=== PATIENT | female | born 1945 | race Hispanic/Latino ===

== ENCOUNTER → 2017-12-24 | Outpatient (CLI) | payer OTHER, MEDICARE ==
[~2017-12-24] MED LIST: AMLO5TAB2 PO; CALC-1009 PO; CARB-38 PO; LISI10TA7 PO; ROSU10TA27 PO; [UNRECOGNIZED DRUG - OTHER] PO
== END | disposition home or self-care (01) ==
LOC: SHCH 09:40
PROVIDERS: ATTEND Internal Medicine Cardiovascular Disease
DX: I10 Essential (primary) hypertension (principal)
CPT/HCPCS: 93306

== ENCOUNTER → 2018-01-05 | Outpatient (CLI) | payer OTHER, MEDICARE | END | disposition home or self-care (01) | LOC: SHCH 08:13 | PROVIDERS: ATTEND Internal Medicine Cardiovascular Disease | DX: I70.1 Atherosclerosis of renal artery (principal); N28.1 Cyst of kidney, acquired | CPT/HCPCS: 93975 ==

== ENCOUNTER 2018-05-19 09:50 | Observation (INO) | payer OTHER, MEDICARE ==
[~2018-05-19] VITALS: Ht 154.9 cm; Wt 45.6 kg
[~2018-05-19 09:50] MED LIST changes: -AMLO5TAB2 PO; +AMLO5TAB7 PO
[2018-05-19 10:12] LABS: EOSINOPHILS % (AUTO) 2.3 % (0.0-8.0); HEMATOCRIT 33.6 % (36-48); LYMPHOCYTES % (AUTO) 24.5 % (21.0-51.0); MEAN CORPUSCULAR HEMOGLOBIN 30.7 pg (27.0-33.0); MEAN CORPUSCULAR HGB CONC 34.7 g/dL (32.0-36.0); MEAN CORPUSCULAR VOLUME 88.4 fL (79-99); MONOCYTES % (AUTO) 8.4 % (3.0-13.0); NEUTROPHILS % (AUTO) 63.8 % (40.0-77.0); NUCLEATED RED BLOOD CELLS 0.1 % (0.0-0.19); PLATELET COUNT (AUTO) 237 K/uL (130-400); RED CELL DISTRIBUTION WIDTH 13.5 % (11.0-15.5); WHITE BLOOD COUNT (AUTO) 7.3 K/uL (4.8-10.8)
[2018-05-19 10:20] LABS: CREATININE 1.7 mg/dL (0.5-1.5); POTASSIUM 4.2 mmol/L (3.5-5.1)
[2018-05-19 10:25] LABS: INR 0.95 (0.85-1.15)
[2018-05-19 10:26] LABS: ALBUMIN 4.1 g/dL (3.5-5.0); BILIRUBIN,TOTAL 0.6 mg/dL (0.2-1.0); TOTAL PROTEIN, SERUM 7.3 g/dL (6.0-8.3)
[2018-05-19] MEDS ORDERED: ASPIRIN 325 MG TABLET ONE (13:11)
[2018-05-19] MEDS ORDERED: MORPHINE SULFATE 2 MG/ML 1ML SYG IV PRN (14:30)
[2018-05-19] MEDS: ASPIRIN 325MG EC TAB 325 MG TABLET.DR PO SCH (14:30)
[2018-05-19] MEDS ORDERED: ACETAMINOPHEN 325 MG TAB PO PRN (14:30)
[2018-05-19] MEDS ORDERED: ZOLPIDEM TARTRATE 5 MG TAB PO PRN (14:30)
[2018-05-19] MEDS ORDERED: ONDANSETRON HCL 4 MG/2 ML VIAL IV PRN (14:30)
[2018-05-19 15:51] LABS: HEMOGLOBIN A1C 5.2 % (4.0-6.0)
[2018-05-19 16:09] LABS: CREATINE KINASE, TOTAL 121 U/L (21-232); MYOGLOBIN 142 ng/mL (10-92); TROPONIN I < 0.04 ng/mL (0.00-0.06)
[2018-05-19] MEDS ORDERED: NITROGLYCERIN 1GM/1 INCH PACKET TD ONE (18:13)
[2018-05-19 20:15] VITALS: BP 135/54
[2018-05-19] MEDS: NITROGLYCERIN 1GM/1 INCH PACKET TD SCH (21:19)
[2018-05-19] MEDS: METOPROLOL TARTRATE 25 MG TAB PO SCH (21:42)
[2018-05-19] MEDS: SODIUM CHLORIDE 0.9% 1000ML 1,000 ML IV SCH (21:42)
[2018-05-19] MEDS: ENOXAPARIN SODIUM 60 MG/0.6 ML SQ SCH (21:43)
[2018-05-19 22:57] LABS: CREATINE KINASE, TOTAL 106 U/L (21-232); MYOGLOBIN 132 ng/mL (10-92); TROPONIN I < 0.04 ng/mL (0.00-0.06)
[2018-05-19 23:00] VITALS: BP 93/75
[2018-05-20] MEDS: SODIUM CHLORIDE 0.9% 1000ML 1,000 ML IV SCH ×2 (00:25→06:20)
[2018-05-20 04:00] VITALS: BP 93/57
[2018-05-20] MEDS: NITROGLYCERIN 1GM/1 INCH PACKET TD SCH (06:12)
[2018-05-20 06:51] LABS: CHOLESTEROL 163 mg/dL (<200); HDL CHOLESTEROL 35 mg/dL (35-85); LDL DIRECT 67 mg/dL (0-99); TRIGLYCERIDES 436 mg/dL (30-200)
[2018-05-20 06:56] LABS: CREATINE KINASE, TOTAL 93 U/L (21-232); MYOGLOBIN 110 ng/mL (10-92); TROPONIN I < 0.04 ng/mL (0.00-0.06)
[2018-05-20 07:32] VITALS: BP 116/60
[2018-05-20] MEDS: ASPIRIN 325MG EC TAB 325 MG TABLET.DR PO SCH (08:36)
[2018-05-20] MEDS: ENOXAPARIN SODIUM 60 MG/0.6 ML SQ SCH (08:37)
[2018-05-20] MEDS: METOPROLOL TARTRATE 25 MG TAB PO SCH (08:37)
[2018-05-20] MEDS ORDERED: PANTOPRAZOLE SODIUM 40 MG TABLET.DR PO SCH (09:00)
[2018-05-20] MEDS ORDERED: CALCIUM 600 + VITAMIN D 400 TABLET PO SCH (09:00)
[2018-05-20] MEDS ORDERED: CYANOCOBALAMIN (VITAMIN B-12) 1,000 MCG TABLET PO SCH (09:00)
[2018-05-20] MEDS ORDERED: CARBIDOPA-LEVODOPA 25-100 TAB PO SCH (09:00)
[2018-05-20] MEDS ORDERED: CLOPIDOGREL BISULFATE 75 MG TAB PO SCH (09:00)
[2018-05-20] MEDS ORDERED: LISINOPRIL 10 MG TABLET PO SCH (12:00)
[2018-05-20] MEDS ORDERED: AMLODIPINE BESYLATE 5 MG TAB PO SCH (21:00)
[2018-05-20] MEDS ORDERED: ATORVASTATIN CALCIUM 20 MG TABLET PO SCH (21:00)
== END 2018-05-20 10:00 | disposition home or self-care (01) ==
LOC: EDH 09:50 → EDHIP 14:24 → 2AH 18:55
PROVIDERS: ADMIT Internal Medicine; ATTEND Internal Medicine
DX: R07.89 Other chest pain (principal); E78.5 Hyperlipidemia, unspecified; G20 Parkinson's disease; I10 Essential (primary) hypertension; Z82.0 Family history of epilepsy and other diseases of the nervous system; Z82.3 Family history of stroke; Z82.49 Family history of ischemic heart disease and other diseases of the circulatory system; Z83.3 Family history of diabetes mellitus; Z82.5 Family history of asthma and other chronic lower respiratory diseases
CPT/HCPCS: 36415 ×2; 70450; 71045; 80053; 80061; 82550 ×4; 83036; 83874 ×3; 84484 ×4; 85025; 85610; 85730; 93005; 96372; 99285; G0378 ×20; J1650 ×2; J7030 ×2

== ENCOUNTER → 2018-06-17 | Outpatient (CLI) | payer OTHER, MEDICARE | END | disposition home or self-care (01) | LOC: SHCH 07:40 | PROVIDERS: ATTEND Internal Medicine Cardiovascular Disease | DX: I20.9 Angina pectoris, unspecified (principal) | CPT/HCPCS: 93306 ==

== ENCOUNTER → 2019-09-30 | Outpatient (CLI) | payer OTHER, MEDICARE ==
[~2019-09-30] MED LIST changes: -AMLO5TAB7 PO; +AMLO5TAB9 PO; -ROSU10TA27 PO; +ROSU10TA28 PO
== END | disposition home or self-care (01) ==
LOC: SHCH 08:54
PROVIDERS: ATTEND Internal Medicine Cardiovascular Disease
DX: I65.23 Occlusion and stenosis of bilateral carotid arteries (principal); I70.8 Atherosclerosis of other arteries
CPT/HCPCS: 93880

== ENCOUNTER → 2019-10-08 | Outpatient (CLI) | payer OTHER, MEDICARE ==
[~2019-10-08] MED LIST changes: +REGADENOSON 0.4 MG/5 ML PF SYG IVP SCH
== END | disposition home or self-care (01) ==
LOC: SHCH 08:50
PROVIDERS: ATTEND Internal Medicine Cardiovascular Disease
DX: I20.9 Angina pectoris, unspecified (principal); R06.09 Other forms of dyspnea; R07.9 Chest pain, unspecified
CPT/HCPCS: 78452; 93017; 96374; A9500 ×2; J2785

== ENCOUNTER → 2020-11-09 | Outpatient (CLI) | payer OTHER, MEDICARE ==
[~2020-11-09] MED LIST changes: +AMLO-257 PO; -AMLO5TAB9 PO; +LISI10TA24 PO; -LISI10TA7 PO; -REGADENOSON 0.4 MG/5 ML PF SYG IVP SCH
== END | disposition home or self-care (01) ==
LOC: SHCH 10:00
PROVIDERS: ATTEND Internal Medicine Cardiovascular Disease
DX: R09.89 Other specified symptoms and signs involving the circulatory and respiratory systems (principal)
CPT/HCPCS: 93880

== ENCOUNTER 2021-05-08 16:29 | Inpatient (IN) | payer MEDICARE ==
[~2021-05-08] VITALS: Ht 147.3 cm; Wt 45.3 kg
[~2021-05-08 16:29] MED LIST changes: -CALC-1009 PO; -LISI10TA24 PO; +LOSA50TA64 PO; +VITAMIN D2 PO; -[UNRECOGNIZED DRUG - OTHER] PO
[2021-05-08 16:39] VITALS: BP 139/55
[2021-05-08 17:34] LABS: BASOPHILS % (AUTO) 0.4 % (0.0-5.0); EOSINOPHILS % (AUTO) 2.6 % (0.0-8.0); HEMATOCRIT 33.4 % (36-48); LYMPHOCYTES % (AUTO) 21.5 % (21.0-51.0); MEAN CORPUSCULAR HEMOGLOBIN 30.1 pg (27.0-33.0); MEAN CORPUSCULAR HGB CONC 34.7 g/dL (32.0-36.0); MEAN CORPUSCULAR VOLUME 86.8 fL (79-99); MONOCYTES % (AUTO) 8.7 % (3.0-13.0); NEUTROPHILS % (AUTO) 66.4 % (40.0-77.0); PLATELET COUNT (AUTO) 297 K/uL (130-400); RED BLOOD CELL COUNT(AUTO) 3.85 MIL/uL (4.00-5.50); RED CELL DISTRIBUTION WIDTH 12.3 % (11.0-15.5); WHITE BLOOD COUNT (AUTO) 11.3 K/uL (4.8-10.8)
[2021-05-08 17:47] LABS: INR 0.98 (0.85-1.15); PROTHROMBIN TIME 10.7 SEC (9.6-11.6)
[2021-05-08 18:06] LABS: ALBUMIN 4.2 g/dL (3.5-5.0); BILIRUBIN,TOTAL 0.8 mg/dL (0.2-1.0); CREATININE 2.1 mg/dL (0.5-1.5); POTASSIUM 4.4 mmol/L (3.5-5.1); TOTAL PROTEIN, SERUM 7.9 g/dL (6.0-8.3)
[2021-05-08 18:30] VITALS: BP 136/58
[2021-05-08] MEDS ORDERED: MORPHINE 4 MG SYG IM ONE (18:30)
[2021-05-08] MEDS ORDERED: ONDANSETRON 4MG INJ IVP ONE (18:30)
[2021-05-08] MEDS ORDERED: ONDANSETRON 4MG INJ IV PRN (20:30)
[2021-05-08] MEDS ORDERED: ACETAMINOPHEN 325 MG TAB PO PRN (20:30)
[2021-05-08] MEDS ORDERED: MORPHINE 2 MG SYG IVP PRN (20:30)
[2021-05-08 21:00] VITALS: BP 144/65
[2021-05-08] MEDS: INSULIN HUMULIN R 100 UNIT/ML 3ML SQ SCH (21:00)
[2021-05-08] MEDS: 0.9%NACL 1000ML 1,000 ML IV SCH (22:15)
[2021-05-08] MEDS: FAMOTIDINE 20MG TAB PO SCH (22:15)
[2021-05-08 22:55] LABS: APPEARANCE,URINE Clear (CLEAR); BILIRUBIN,URINE Negative (NEGATIVE); COLOR,URINE Yellow (YELLOW); GLUCOSE, URINE (UA) Negative (NEGATIVE); KETONES,URINE Trace mg/dL (NEGATIVE); LEUKOCYTE ESTERASE ,URINE Negative (NEGATIVE); NITRATE,URINE Negative (NEGATIVE); OCCULT BLOOD,URINE Negative (NEGATIVE); PROTEIN,URINE POS 1+ mg/dL (NEGATIVE)
[2021-05-08 23:03] LABS: BACTERIA,URINE None Seen /HPF (None Seen); RBC,URINE 0-1 /HPF (0-1); SQUAMOUS EPITHELIAL CELL,UR Few /HPF (0-2); WBC,URINE 0-1 /HPF (0-1)
[2021-05-08 23:30] VITALS: BP 130/52
[2021-05-08 23:55] VITALS: BP 134/49
[2021-05-09 03:32] VITALS: BP 137/64
[2021-05-09 05:11] LABS: BASOPHILS % (AUTO) 0.5 % (0.0-5.0); EOSINOPHILS % (AUTO) 0.5 % (0.0-8.0); HEMATOCRIT 32.3 % (36-48); LYMPHOCYTES % (AUTO) 14.2 % (21.0-51.0); MEAN CORPUSCULAR HEMOGLOBIN 29.7 pg (27.0-33.0); MEAN CORPUSCULAR HGB CONC 34.4 g/dL (32.0-36.0); MEAN CORPUSCULAR VOLUME 86.4 fL (79-99); MONOCYTES % (AUTO) 7.3 % (3.0-13.0); PLATELET COUNT (AUTO) 277 K/uL (130-400); RED BLOOD CELL COUNT(AUTO) 3.74 MIL/uL (4.00-5.50); RED CELL DISTRIBUTION WIDTH 12.3 % (11.0-15.5); WHITE BLOOD COUNT (AUTO) 11.4 K/uL (4.8-10.8)
[2021-05-09 05:30] LABS: HEMOGLOBIN A1C 5.1 % (4.0-6.0)
[2021-05-09 05:32] LABS: ALBUMIN 3.8 g/dL (3.5-5.0); BILIRUBIN,TOTAL 0.6 mg/dL (0.2-1.0); MAGNESIUM 2.8 mg/dL (1.80-2.40); POTASSIUM 4.9 mmol/L (3.5-5.1); TOTAL PROTEIN, SERUM 7.5 g/dL (6.0-8.3)
[2021-05-09] MEDS: 0.9%NACL 1000ML 1,000 ML IV SCH ×2 (05:49→16:56)
[2021-05-09] MEDS: INSULIN HUMULIN R 100 UNIT/ML 3ML SQ SCH ×4 (05:50→21:00)
[2021-05-09 07:46] VITALS: BP 132/57
[2021-05-09] MEDS: FAMOTIDINE 20MG TAB PO SCH (10:08)
[2021-05-09] MEDS: ACETAMINOPHEN 325 MG TAB PO PRN ×3 (10:14→13:25)
[2021-05-09 10:58] VITALS: BP 127/59
[2021-05-09 16:13] VITALS: BP 133/60
[2021-05-09] MEDS ORDERED: HYDRALAZINE 20MG/ML VIAL IM PRN (16:30)
[2021-05-09 19:28] VITALS: BP 132/64
[2021-05-10] VITALS (27 sets, daily range): BP systolic 105–159; BP diastolic 49–85
[2021-05-10] MEDS: 0.9%NACL 1000ML 1,000 ML IV SCH ×3 (03:08→22:30)
[2021-05-10] MEDS: INSULIN HUMULIN R 100 UNIT/ML 3ML SQ SCH ×4 (06:39→21:00)
[2021-05-10] MEDS: FAMOTIDINE 20MG TAB PO SCH (09:18)
[2021-05-10] MEDS: LOSARTAN 50 MG TABLET PO SCH (09:18)
[2021-05-10] MEDS: CARBIDOPA-LEVODOPA 25-100 TAB PO SCH (09:18)
[2021-05-10] MEDS ORDERED: DEXAMETHASONE SOD PHOSPHATE 4 MG/ML 1ML VIAL ONE (15:17)
[2021-05-10] MEDS ORDERED: ROPIVACAINE 0.5% 5MG/ML 30ML IJ ONE (15:18)
[2021-05-10] MEDS ORDERED: LIDOCAINE PF 100MG/5ML (2%) SYRINGE 5ML ONE (16:27)
[2021-05-10] MEDS ORDERED: SUCCINYLCHOLINE CHLORIDE 20 MG/ML 10 ML VIAL ONE (16:27)
[2021-05-10] MEDS ORDERED: GLYCOPYRROLATE 1 MG/5 ML SYRINGE ONE (16:28)
[2021-05-10] MEDS ORDERED: PROPOFOL 10 MG/ML 20ML VIAL IV ONE (16:28)
[2021-05-10] MEDS ORDERED: NEOSTIGMINE 5MG/5ML SYR IV ONE (16:28)
[2021-05-10] MEDS ORDERED: DEXAMETHASONE SOD PHOSPHATE 10MG/ML 1ML VIAL ONE (16:28)
[2021-05-10] MEDS ORDERED: FENTANYL CITRATE PF 50 MCG/1 ML 2ML VIAL ONE (16:29)
[2021-05-10] MEDS ORDERED: ROCURONIUM 10MG/1ML SYR 10 MG/ML ML ONE (16:29)
[2021-05-10] MEDS ORDERED: ONDANSETRON 4MG INJ ONE (16:29)
[2021-05-10] MEDS: CEFAZOLIN SODIUM 1 GM VIAL ONE ×2 (16:40→17:21)
[2021-05-10] MEDS ORDERED: MEPERIDINE-PF 25 MG/ML SYG ONE (18:03)
[2021-05-10] MEDS ORDERED: MORPHINE 2 MG SYG IVP PRN (19:30)
[2021-05-10] MEDS ORDERED: HYDROCODONE/ACETAMINOPHEN 5/325 MG TAB PO PRN (19:30)
[2021-05-10] MEDS ORDERED: ATORVASTATIN 20 MG TABLET PO SCH (21:00)
[2021-05-10] MEDS ORDERED: AMLODIPINE 5 MG TAB PO SCH (21:00)
[2021-05-10] MEDS: CEFAZOLIN SODIUM 1 GM VIAL IVP SCH (22:02)
[2021-05-11 04:02] VITALS: BP 144/53
[2021-05-11 05:04] LABS: HEMATOCRIT 28.4 % (36-48); MEAN CORPUSCULAR HEMOGLOBIN 29.8 pg (27.0-33.0); MEAN CORPUSCULAR HGB CONC 34.2 g/dL (32.0-36.0); MEAN CORPUSCULAR VOLUME 87.4 fL (79-99); RED BLOOD CELL COUNT(AUTO) 3.25 MIL/uL (4.00-5.50); RED CELL DISTRIBUTION WIDTH 12.4 % (11.0-15.5); WHITE BLOOD COUNT (AUTO) 10.5 K/uL (4.8-10.8)
[2021-05-11 05:09] LABS: CREATININE 1.6 mg/dL (0.5-1.5); MAGNESIUM 2.4 mg/dL (1.80-2.40); POTASSIUM 4.6 mmol/L (3.5-5.1)
[2021-05-11] MEDS: CEFAZOLIN SODIUM 1 GM VIAL IVP SCH (05:14)
[2021-05-11] MEDS: INSULIN HUMULIN R 100 UNIT/ML 3ML SQ SCH ×3 (07:29→16:24)
[2021-05-11 08:00] VITALS: BP 153/62
[2021-05-11] MEDS: 0.9%NACL 1000ML 1,000 ML IV SCH ×2 (08:30→18:30)
[2021-05-11] MEDS: LOSARTAN 50 MG TABLET PO SCH (08:56)
[2021-05-11] MEDS: CARBIDOPA-LEVODOPA 25-100 TAB PO SCH (08:56)
[2021-05-11] MEDS: FAMOTIDINE 20MG TAB PO SCH (08:56)
[2021-05-11 12:00] VITALS: BP 145/69
[2021-05-11 16:00] VITALS: BP 149/74
[2021-05-11 20:15] VITALS: BP 137/60
== END 2021-05-11 20:25 | DRG 522 ==
LOC: EDH 16:29 → EDHIP 20:10 → 3AH 23:28
PROVIDERS: ADMIT Internal Medicine; ATTEND Internal Medicine
PROC: 0SRS01A Replacement of Left Hip Joint, Femoral Surface with Metal Synthetic Substitute, Uncemented, Open Approach (ICD-10-PCS; principal; 2021-05-10 16:55)
DX: S72.002A Fracture of unspecified part of neck of left femur, initial encounter for closed fracture (principal); E78.5 Hyperlipidemia, unspecified; G20 Parkinson's disease; F02.80 Dementia in other diseases classified elsewhere, unspecified severity, without behavioral disturbance, psychotic disturbance, mood disturbance, and anxiety; I12.9 Hypertensive chronic kidney disease with stage 1 through stage 4 chronic kidney disease, or unspecified chronic kidney disease; I25.10 Atherosclerotic heart disease of native coronary artery without angina pectoris; N18.9 Chronic kidney disease, unspecified; I70.1 Atherosclerosis of renal artery; Z20.822 Contact with and (suspected) exposure to COVID-19; Z51.5 Encounter for palliative care; W18.39XA Other fall on same level, initial encounter; Y93.89 Activity, other specified; Y92.098 Other place in other non-institutional residence as the place of occurrence of the external cause; Y99.8 Other external cause status
CPT/HCPCS: 36415; 71045; 73502; 80048; 80053; 81001; 82550; 82948; 83036; 83735; 83874; 84484; 85025; 85027; 85610; 86850; 86900; 86901; 87635; 93005; 97039; C1776; G0378; J0330; J0690; J1100; J2001; J2175; J2270; J2405; J2704; J2710; J2795; J3010; J3490; J7030

== ENCOUNTER 2023-09-19 01:13 | Emergency (ER) | payer MEDICARE ==
[2023-09-19] MEDS ORDERED: FAMOTIDINE 20MG VIAL IV ONE (01:30)
[2023-09-19] MEDS ORDERED: ONDANSETRON 4MG INJ IVP ONE (01:30)
[2023-09-19] MEDS ORDERED: KETOROLAC 15MG/ML VIAL (15MG/ML) IV ONE (01:30)
[2023-09-19 01:54] LABS: BASOPHILS # (AUTO) 0.09 K/uL (0.00-0.20); BASOPHILS % (AUTO) 0.7 % (0.0-5.0); EOSINOPHILS # (AUTO) 0.15 K/uL (0.00-0.70); EOSINOPHILS % (AUTO) 1.2 % (0.0-8.0); HEMATOCRIT 31.9 % (36-48); IMMATURE GRANULOCYTE ABSOLUTE 0.06 K/uL (0-1); LYMPHOCYTES % (AUTO) 23.3 % (21.0-51.0); MEAN CORPUSCULAR HEMOGLOBIN 30.4 pg (27.0-33.0); MEAN CORPUSCULAR HGB CONC 35.7 g/dL (32.0-36.0); MEAN CORPUSCULAR VOLUME 85.1 fL (79-99); MONOCYTES # (AUTO) 1.2 K/uL (0.1-1.0); MONOCYTES % (AUTO) 9.1 % (3.0-13.0); NEUTROPHILS # (AUTO) 8.4 K/uL (1.8-7.7); NEUTROPHILS % (AUTO) 65.2 % (40.0-77.0); PLATELET COUNT (AUTO) 300 K/uL (130-400); RED BLOOD CELL COUNT(AUTO) 3.75 MIL/uL (4.00-5.50); RED CELL DISTRIBUTION WIDTH 12.8 % (11.0-15.5); WHITE BLOOD COUNT (AUTO) 12.9 K/uL (4.8-10.8)
[2023-09-19 01:56] LABS: CREATININE 1.7 mg/dL (0.5-1.5); POTASSIUM 3.6 mmol/L (3.5-5.1)
[2023-09-19 02:00] LABS: ALBUMIN 3.3 g/dL (3.5-5.0); BILIRUBIN,TOTAL 0.6 mg/dL (0.2-1.0); TOTAL PROTEIN, SERUM 6.7 g/dL (6.0-8.3)
[2023-09-19 03:05] LABS: ADD UA MICROSCOPIC YES; APPEARANCE,URINE CLOUDY (CLEAR); BILIRUBIN,URINE NEGATIVE (NEGATIVE); COLOR,URINE LIGHT-YELLOW (YELLOW); GLUCOSE, URINE (UA) NEGATIVE (NEGATIVE); KETONES,URINE NEGATIVE (NEGATIVE); LEUKOCYTE ESTERASE ,URINE 75 Leu/uL (NEGATIVE); NITRATE,URINE NEGATIVE (NEGATIVE); PH,URINE 6.5 (5.0-8.0); PROTEIN,URINE 70 mg/dL (NEGATIVE); UROBILINOGEN,URINE 0.2 mg/dL (0.2-1.0)
[2023-09-19 03:10] LABS: BACTERIA,URINE RARE /HPF (None Seen); MUCUS,URINE RARE LPF (None Seen); WBC,URINE 26-50 /HPF (0-1)
[2023-09-19] MEDS ORDERED: CEFTRIAXONE 2GM VIAL IVPB ONE (03:30)
[2023-09-19 06:04] VITALS: BP 119/46; PULSE 67; RESP 17; O2SAT 100
[2023-09-19] MEDS ORDERED: FAMO-136 PO (06:06)
[2023-09-19] MEDS ORDERED: CEPH500C2 PO (06:06)
[2023-09-19] MEDS ORDERED: DSSL PO (06:06)
[2023-09-19] MEDS ORDERED: MAG/ALUM/SIMETH 30 ML UDCUP PO ONE (06:30)
[2023-09-19] MEDS ORDERED: METOCLOPRAMIDE 10 MG/2 ML VIAL IVP ONE (06:30)
== END 2023-09-19 06:45 | disposition home or self-care (01) ==
LOC: EDH 01:13
DX: N39.0 Urinary tract infection, site not specified (principal); K80.50 Calculus of bile duct without cholangitis or cholecystitis without obstruction; K59.00 Constipation, unspecified; E11.9 Type 2 diabetes mellitus without complications; I10 Essential (primary) hypertension; Z79.899 Other long term (current) drug therapy
CPT/HCPCS: 99285; 74176; 96365; 96375; 76705; 84484; 80053; 83690; 85025; 87088; 81001; 36415; J3490; J0696; J2405; J2765; J1885

== ENCOUNTER 2024-12-18 20:27 | Inpatient (IN) | payer MEDICARE ==
[~2024-12-18] VITALS: Ht 152.4 cm; Wt 45.5 kg
[~2024-12-18 20:27] MED LIST changes: +DSSL PO; +FAMO-136 PO; -ROSU10TA28 PO; +ROSU10TA72 PO
--- NOTE | 2024-12-18 20:44 | ERN ---
General Chief Complaint: Weakness Stated Complaint: GENERALIZED WEAKNESS Time Seen by MD: 20:32 Source: patient, EMS History of Present Illness Initial Comments Patient is a 79-year-old female who was discharged from an acute care facility to her home November 08. She comes in today with a chief complaint of weakness. The patient is wearing a diaper with decubitus ulcers present on her hips and sacrum. The dressings for the decubitus ulcers have not been changed for quite a while. In addition the patient has a Campos catheter that has purulent drainage from the patient's bladder. Patient's body has stool on it as does the Campos catheter. Surprisingly the patient has good vital signs in his alert. Timing/Duration: 1 week, getting worse Allergies: Coded Allergies: No Known Drug Allergies (Verified Allergy, Unknown, 01/25/17) Home Meds Active Scripts Famotidine (Pepcid) 20 Mg Tablet, 20 MG PO Q12H for 14 Days, #28 TAB Prov:MARY OCONNELL MD 09/19/23 Docusate Sodium (Colace Liquid 100Mg/10Ml) 50 Mg/5 Ml Liq, 150 MG PO Q12H, #60 ML Prov:MARY OCONNELL MD 09/19/23 Reported Medications Losartan Potassium (Losartan Potassium) 50 Mg Tablet, 50 MG PO DAILY, TAB 01/10/21 [Vitamin D2] No Conflict Check, 12790 PO QWEEK 01/10/21 Rosuvastatin Calcium (Rosuvastatin Calcium) 10 Mg Tablet, 10 MG PO HS, TAB 01/26/17 Carbidopa/Levodopa (Carbidopa-Levo 25-100 mg Odt) 25 Mg-100 Mg Tab.rapdis, 1 EACH PO AM, TAB 01/26/17 Amlodipine Besylate (Amlodipine Besylate) 5 Mg Tablet, 5 MG PO HS, TAB 01/26/17 Past Medical History Past Medical History: Diabetes-Type II, High Cholesterol, Hypertension, Other Medical History Other: PARKINSONS Past Surgical History: Social History Social History: Negative, Lives with family ROS Dictation Unable to obtain a review of systems from the patient Physical Exam General Appearance: (+) mild distress Orientation: (+) alert Head/Face Trauma: No Eye: bilateral eye normal inspection, bilateral eye PERRL, bilateral eye EOMI Ear, Nose, Throat: (+) hearing grossly normal, (+) moist mucous membraine, (+) normal pharynx Neck: (+) normal inspection, (+) full range of motion Respiratory: (+) chest non-tender, (+) well ventilated Heart: (+) regular, (+) no gallop Vascular: (+) no edema, (+) normal peripheral pulse Gastrointestinal: (+) soft, (+) non-tender, (+) no organomegaly, (+) bowel sound present Back: (+) normal inspection, (+) no CVA tenderness, (+) no vertebral tenderness Extremities Comment Patient appears malnourished. Results Laboratory and Microbiology Lab and Micro Result Laboratory Tests Test 12/18/24 20:50 White Blood Count 20.7 K/uL (4.8-10.8) H Red Blood Count 3.99 MIL/uL (4.00-5.50) L Hemoglobin 11.8 g/dL (12.0-16.0) L Hematocrit 36.0 % (36-48) Mean Corpuscular Volume 90.2 fL (79-99) Mean Corpuscular Hemoglobin 29.6 pg (27.0-33.0) Mean Corpuscular Hemoglobin Concent 32.8 g/dL (32.0-36.0) Red Cell Distribution Width 13.3 % (11.0-15.5) Platelet Count 506 K/uL (130-400) H Mean Platelet Volume 8.5 fL (7.5-10.5) Immature Granulocyte % (Auto) 1.5 % (0-1) H Neutrophils (%) (Auto) 60.7 % (40.0-77.0) Lymphocytes (%) (Auto) 27.4 % (21.0-51.0) Monocytes (%) (Auto) 5.8 % (3.0-13.0) Eosinophils (%) (Auto) 3.9 % (0.0-8.0) Basophils (%) (Auto) 0.7 % (0.0-5.0) Neutrophils # (Auto) 12.6 K/uL (1.8-7.7) H Lymphocytes # (Auto) 5.7 K/uL (1.0-4.8) H Monocytes # (Auto) 1.2 K/uL (0.1-1.0) H Eosinophils # (Auto) 0.80 K/uL (0.00-0.70) H Basophils # (Auto) 0.14 K/uL (0.00-0.20) Absolute Immature Granulocyte (auto 0.30 K/uL (0-1) Segmented Neutrophils % 62 % (40-70) Band Neutrophils % 8 % (0-2) H Lymphocytes % (Manual) 10 % (22-44) L Monocytes % (Manual) 5 % (2-9) Eosinophils % (Manual) 2 % (1-6) Nucleated Red Blood Cells 0.0 % (0.0-0.19) Differential Comment MANUAL DIFFERENTIAL Reactive Lymphocytes 13 % (0-0) H White Cell Morphology Comment NO IMMATURE CELLS Platelet Morphology Comment Red Blood Cell Morphology See comments Sodium Level 143 mmol/L (136-145) Potassium Level 3.6 mmol/L (3.5-5.1) Chloride Level 107 mmol/L (101-111) Carbon Dioxide Level 23 mmol/L (21-32) Blood Urea Nitrogen 21 mg/dL (7-18) H Creatinine 1.7 mg/dL (0.5-1.0) H Glomerular Filtration Rate Calc 30 mL/min (>90) Random Glucose 128 mg/dL (70-105) H Lactic Acid Level 3.4 mmol/L (0.8-2.5) H Total Calcium 8.4 mg/dL (8.5-10.1) L Phosphorus Level 4.0 mg/dL (2.5-4.9) Magnesium Level 2.10 mg/dL (1.80-2.40) Total Bilirubin 0.5 mg/dL (0.2-1.0) Aspartate Amino Transf (AST/SGOT) 23 U/L (10-37) Alanine Aminotransferase (ALT/SGPT) 23 U/L (12-78) Alkaline Phosphatase 155 U/L (50-136) H Total Creatine Kinase 190 U/L (21-232) # Troponin I High Sensitivity 7 ng/L (4-50) Total Protein 6.6 g/dL (6.0-8.3) Albumin 3.2 g/dL (3.5-5.0) L Procalcitonin 0.13 ng/mL (0.05-0.5) MDM Patient is in extremely poor state of health. Unclear her nutritional status. Purulent drainage in Campos. Multiple decubitus ulcers. She will obviously need to be admitted to the hospital. I will get a baseline set of labs, including urine culture Campos tip culture. Laboratory analysis so far shows a white blood cell count of 20 and a lactate of 3.4. Not all of her labs are back but the hospitalist have agreed to take her onto their service. ED Course Orders Procedure Category Date Status Time 12 Lead Ekg Tracing- EKG 12/18/24 Logged Technical 20:45 Comprehensive LAB 12/18/24 Complete Metabolic Panel 20:45 Cbc With Differential LAB 12/18/24 In Process 20:45 Lactic Acid LAB 12/18/24 Complete 20:45 Procalcitonin LAB 12/18/24 Complete 20:45 Troponin I High LAB 12/18/24 Complete Sensitivity 20:45 Urinalysis Profile LAB 12/18/24 Logged 20:45 Magnesium LAB 12/18/24 Complete 20:45 Phosphorus LAB 12/18/24 Complete 20:45 Chest 1vw RAD 12/18/24 Resulted 20:45 Creatine Kinase, Total LAB 12/18/24 Complete 20:45 Manual Differential LAB 12/18/24 In Process 20:50 Vital Signs Date Time Temp Pulse Resp B/P (MAP) Pulse Ox O2 Delivery O2 Flow Rate FiO2 12/18/24 21:58 83 16 132/51 98 Room Air* 0 21 12/18/24 20:27 99.0 100 16 126/41 99 Room Air 0 DX & DISP Disposition: Inpatient Departure Impression: Primary Impression: Acute kidney injury Additional Impression: UTI (urinary tract infection) Condition: Stable Referrals: BHARATHI JOSÉ MD (PCP) KERA LOGAN MD December 18, 2024 20:44
[2024-12-18 20:57] LABS: BASOPHILS # (AUTO) 0.14 K/uL (0.00-0.20); BASOPHILS % (AUTO) 0.7 % (0.0-5.0); EOSINOPHILS % (AUTO) 3.9 % (0.0-8.0); LYMPHOCYTES # (AUTO) 5.7 K/uL (1.0-4.8); LYMPHOCYTES % (AUTO) 27.4 % (21.0-51.0); MEAN CORPUSCULAR HEMOGLOBIN 29.6 pg (27.0-33.0); MEAN CORPUSCULAR HGB CONC 32.8 g/dL (32.0-36.0); MEAN CORPUSCULAR VOLUME 90.2 fL (79-99); MONOCYTES # (AUTO) 1.2 K/uL (0.1-1.0); MONOCYTES % (AUTO) 5.8 % (3.0-13.0); NEUTROPHILS # (AUTO) 12.6 K/uL (1.8-7.7); NEUTROPHILS % (AUTO) 60.7 % (40.0-77.0); PLATELET COUNT (AUTO) 506 K/uL (130-400); RED BLOOD CELL COUNT(AUTO) 3.99 MIL/uL (4.00-5.50); RED CELL DISTRIBUTION WIDTH 13.3 % (11.0-15.5); WHITE BLOOD COUNT (AUTO) 20.7 K/uL (4.8-10.8)
[2024-12-18 21:11] LABS: CREATININE 1.7 mg/dL (0.5-1.0); POTASSIUM 3.6 mmol/L (3.5-5.1)
[2024-12-18 21:21] LABS: ALBUMIN 3.2 g/dL (3.5-5.0); BILIRUBIN,TOTAL 0.5 mg/dL (0.2-1.0); MAGNESIUM 2.1 mg/dL (1.80-2.40); TOTAL PROTEIN, SERUM 6.6 g/dL (6.0-8.3)
--- NOTE | 2024-12-18 21:50 | HMCIMG ---
CHEST 1VW CLINICAL HISTORY: weakness COMPARISON: 08/04/2024 TECHNIQUE: Single view of the chest was obtained. FINDINGS: Lungs are clear. The cardiac size and mediastinum are unremarkable. The bony structures are within normal limits. IMPRESSION: No acute cardiopulmonary process identified.
[2024-12-18 21:59] LABS: BAND NEUTROPHILS % (MANUAL) 8 % (0-2); EOSINOPHILS % (MANUAL) 2 % (1-6); LYMPHOCYTES % (MANUAL) 10 % (22-44); MAN.DIFF COMMENT-IMPRESSION MANUAL DIFFERENTIAL; MONOCYTES % (MANUAL) 5 % (2-9); REACTIVE LYMPHOCYTES 13 % (0-0); SEGMENTED NEUTROPHILS % 62 % (40-70); TOTAL CELLS COUNTED 100; WBC MORPHOLOGY NO IMMATURE CELLS
[2024-12-18 22:16] LABS: APPEARANCE,URINE TURBID (CLEAR); BILIRUBIN,URINE NEGATIVE (NEGATIVE); COLOR,URINE ORANGE (YELLOW); GLUCOSE, URINE (UA) NEGATIVE (NEGATIVE); KETONES,URINE NEGATIVE (NEGATIVE); LEUKOCYTE ESTERASE ,URINE 500 Leu/uL (NEGATIVE); NITRATE,URINE NEGATIVE (NEGATIVE); OCCULT BLOOD,URINE LARGE (NEGATIVE); PH,URINE 5.5 (5.0-8.0); PROTEIN,URINE 300 mg/dL (NEGATIVE); UROBILINOGEN,URINE 3 mg/dL (0.2-1.0)
[2024-12-18 22:20] LABS: ADD UA MICROSCOPIC YES
[2024-12-18 22:23] LABS: BACTERIA,URINE MANY /HPF (None Seen); MUCUS,URINE MANY LPF (None Seen); RBC,URINE 51-100 /HPF (0-1); WBC CLUMP MANY /HPF (0-1); WBC,URINE TNTC /HPF (0-1)
[2024-12-18] MEDS: LACTATED RINGERS 1000ML IV STA (22:52)
[2024-12-18] MEDS: CEFTRIAXONE 2GM VIAL IVPB ONE (23:34)
[2024-12-19] VITALS (9 sets, daily range): BP systolic 103–137; BP diastolic 32–51; PULSE 65–87; RESP 15–18; TEMP 98.3–99.9; O2SAT 95–100
[2024-12-19] MEDS ORDERED: cloNIDine HCL 0.1 MG TABLET PO PRN
[2024-12-19] MEDS ORDERED: ondanSETRON 4MG INJ IVP PRN
[2024-12-19] MEDS ORDERED: VANCOMYCIN PROTOCOL PER PHARMACY IV SCH
[2024-12-19] MEDS ORDERED: acetaMINOPHEN 650 MG SUPPOSITORY RC PRN
[2024-12-19] MEDS ORDERED: ALBUTEROL 0.083% 2.5 MG/3 ML INH IH PRN
[2024-12-19] MEDS ORDERED: LAbetaLOL 20MG SYG IV PRN
--- NOTE | 2024-12-19 00:09 | HP ---
[facility] HISTORY & PHYSICAL Date Patient Seen: December 18, 2024 Time of Visit: 23:56 Supervising Physician: Dr Elton Cardona Primary Care Physician: Dr Lewis Outpatient Specialists: [ ] Inpatient Consults: [ ] PROBLEM LIST: Severe sepsis, POA Urinary tract infection, POA Decubitus ulcer, POA Acute kidney injury, POA Hypertension, POA DM type 2, with hyperglycemia, POA Hyperlipidemia, POA Severe calorie malnutrition Chronic debility History of parkinsonism PLAN: Admit to PCCU VS per unit protocol Start vancomycin and cefepime Trend lactic acid level Treat fever aggressively Monitor temperature curve Follow up culture results Nutrition consult Speech eval and treat Wound care consult in a.m. Turn patient accordingly Keep head of bed above 30� Keep SBP less than 160 P.r.n. hydralazine and labetalol Keep serum glucose less than 150 ISS and fingerstick per unit protocol Bilateral SCDs CBC, CMP, magnesium level daily HPI: 79-year-old female with past medical history of DM type 2, hypertension, hyperlipidemia, parkinsonism, chronic debility, who was recently discharged from long term due to fund issue, presented to ED via EMS with complaint of generalized body weakness, severe malnutrition, and found to have severe sepsis, acute kidney injury, decubitus ulcer and UTI. Per report EMS was activated by son due to above-mentioned complaint. Apparently per nursing report patient was recently discharged from [facility]. In ED chest x-ray was done showed no acute pulmonary infiltrates, her CBC is significant for W[place] [address], her chemistry significant for lactic acid of 3.4, creatinine level of 1.7, BUN of 21. Her UA is consistent with urinary tract infection. On initial evaluation patient looks very weak, debilitated, contracted upper and lower extremities, with multiple decubitus ulcer, patient has also chronic Campos that needs to be changed, with large decubitus ulcer with pungent smell. Unable to complete ROS due to current mental state. At present patient is currently hemodynamically stable, on room air with appropriate oxygen saturation, not in acute respiratory distress. All information were obtained from prior medical record, and ER staff report. PAST MEDICAL HX: see above PAST SURGICAL HX: noncontributory SOCIAL HISTORY: No tobacco, ETOH, or illicit drug use Coded Allergies: No Known Drug Allergies (Verified Allergy, Unknown, 01/25/17) REVIEW OF SYSTEMS: Unable to obtain PHYSICAL EXAM: GENERAL: Lethargic HEENT: EOMI, Sclera non icteric, moist mucosa NECK: Supple, no JVD, trachea midline LUNGS: Clear breath sounds bilaterally. No wheezes HEART: Regular rate and rhythm. Normal S1 and S2, without murmurs ABD: Abdomen soft, nontender. Bowel sounds present EXT: Contracted lower extremities, with multiple sacral ulcers NEURO: Lethargic Vital Signs (last 8hr) Date Time Temp Pulse Resp B/P (MAP) Pulse Ox O2 Delivery O2 Flow Rate FiO2 12/18/24 23:35 76 18 106/43 99 Room Air* 0 21 12/18/24 21:58 83 16 132/51 98 Room Air* 0 21 12/18/24 20:27 99.0 100 16 126/41 99 Room Air 0 LABS: Hematology Labs: Test 12/18/24 20:50 Range/Units White Blood Count 20.7 H 4.8-10.8 K/uL Red Blood Count 3.99 L 4.00-5.50 MIL/uL Hemoglobin 11.8 L 12.0-16.0 g/dL Hematocrit 36.0 36-48 % Mean Corpuscular Volume 90.2 79-99 fL Mean Corpuscular Hemoglobin 29.6 27.0-33.0 pg Mean Corpuscular Hemoglobin Concent 32.8 32.0-36.0 g/dL Red Cell Distribution Width 13.3 11.0-15.5 % Platelet Count 506 H 130-400 K/uL Mean Platelet Volume 8.5 7.5-10.5 fL Immature Granulocyte % (Auto) 1.5 H 0-1 % Neutrophils (%) (Auto) 60.7 40.0-77.0 % Lymphocytes (%) (Auto) 27.4 21.0-51.0 % Monocytes (%) (Auto) 5.8 3.0-13.0 % Eosinophils (%) (Auto) 3.9 0.0-8.0 % Basophils (%) (Auto) 0.7 0.0-5.0 % Neutrophils # (Auto) 12.6 H 1.8-7.7 K/uL Lymphocytes # (Auto) 5.7 H 1.0-4.8 K/uL Monocytes # (Auto) 1.2 H 0.1-1.0 K/uL Eosinophils # (Auto) 0.80 H 0.00-0.70 K/uL Basophils # (Auto) 0.14 0.00-0.20 K/uL Absolute Immature Granulocyte (auto 0.30 0-1 K/uL Segmented Neutrophils % 62 40-70 % Band Neutrophils % 8 H 0-2 % Lymphocytes % (Manual) 10 L 22-44 % Monocytes % (Manual) 5 2-9 % Eosinophils % (Manual) 2 1-6 % Nucleated Red Blood Cells 0.0 0.0-0.19 % Differential Comment MANUAL DIFFERENTIAL Reactive Lymphocytes 13 H 0-0 % White Cell Morphology Comment NO IMMATURE CELLS Platelet Morphology Comment Red Blood Cell Morphology See comments Chemistry Labs: Test 12/18/24 20:50 Range/Units Sodium Level 143 136-145 mmol/L Potassium Level 3.6 3.5-5.1 mmol/L Chloride Level 107 101-111 mmol/L Carbon Dioxide Level 23 21-32 mmol/L Blood Urea Nitrogen 21 H 7-18 mg/dL Creatinine 1.7 H 0.5-1.0 mg/dL Glomerular Filtration Rate Calc 30 >90 mL/min Random Glucose 128 H 70-105 mg/dL Lactic Acid Level 3.4 H 0.8-2.5 mmol/L Total Calcium 8.4 L 8.5-10.1 mg/dL Phosphorus Level 4.0 2.5-4.9 mg/dL Magnesium Level 2.10 1.80-2.40 mg/dL Total Bilirubin 0.5 0.2-1.0 mg/dL Aspartate Amino Transf (AST/SGOT) 23 10-37 U/L Alanine Aminotransferase (ALT/SGPT) 23 12-78 U/L Alkaline Phosphatase 155 H 50-136 U/L Total Creatine Kinase 190 # 21-232 U/L Troponin I High Sensitivity 7 4-50 ng/L Total Protein 6.6 6.0-8.3 g/dL Albumin 3.2 L 3.5-5.0 g/dL Procalcitonin 0.13 0.05-0.5 ng/mL DIAGNOSTICS / RADIOLOGY RESULTS: CHEST 1VW CLINICAL HISTORY: weakness COMPARISON: 08/04/2024 TECHNIQUE: Single view of the chest was obtained. FINDINGS: Lungs are clear. The cardiac size and mediastinum are unremarkable. The bony structures are within normal limits. IMPRESSION: No acute cardiopulmonary process identified. PLAN NEURO: Minimize central acting medications as possible. Maintain fall precautions, adequate lighting during the day PULMONARY: Supplemental 02 as needed. Maintain aspiration precautions at all times CARDIOVASCULAR: Follow hemodynamics. Vital signs per facility protocol GI & NUTRITION: Continue with nutritional support. Continue stool softeners and laxatives as needed. KIDNEYS & ELECTROLYTES: Strict monitoring of intake, output and overall fluid balance. Avoid nephrotoxic medications to the extent possible. Medications to be dosed according to renal function. Monitor electrolytes and replace as needed ENDOCRINE: Maintain blood glucose between 100-180 at all times. Hypoglycemia protocol in place INFECTIOUS DISEASE: Trend temperature, WBC and procalcitonin level Follow cultures, deescalate antibiotics as soon as possible. Panculture if new onset fever ONCOLOGY/HEMATOLOGY/COAGULATION: Monitor for s/s of bleeding Monitor hemoglobin, coagulation studies as needed SKIN: Pressure ulcer prevention per facility protocol Specialty mattress ORTHO/REHAB: Continue PT/OT Prophylaxis: Continue GI and DVT prophylaxis Code Status: Full Resuscitation Disposition: TBD Other: Total patient care time exceeds 35 minutes excluding all procedures. Supervising physician: DAVID Recinos CLINICAL SUPPORT TECH December 19, 2024 00:09
[2024-12-19] MEDS: VANCOMYCIN 1.25 GM/250 ML BAG 250 ML IV ONE (00:48)
[2024-12-19] MEDS: LACTATED RINGERS 1000ML 1,000 ML IV SCH (00:49)
[2024-12-19] MEDS: HEParin 5,000 UNIT VIAL SQ SCH (00:50)
[2024-12-19] MEDS ORDERED: POTA-200 PO (03:05)
[2024-12-19] MEDS ORDERED: GLUC1VIA19 IJ (03:05)
[2024-12-19] MEDS ORDERED: GLUC1VIA20 IJ (03:05)
[2024-12-19] MEDS ORDERED: POLY17PO4 PO (03:05)
[2024-12-19] MEDS ORDERED: PROT946L PO (03:05)
[2024-12-19] MEDS ORDERED: ERGO500093 PO (03:05)
[2024-12-19] MEDS ORDERED: HYDR25TA67 PO (03:05)
[2024-12-19] MEDS ORDERED: DOCU-116 PO (03:05)
[2024-12-19] MEDS ORDERED: CARB-38 PO (03:05)
[2024-12-19] MEDS ORDERED: ZINC220T4 PO (03:05)
[2024-12-19] MEDS ORDERED: LACT10SO85 PO (03:05)
[2024-12-19] MEDS ORDERED: FAMO20TA8 PO (03:05)
[2024-12-19] MEDS ORDERED: BISA-151 PO (03:05)
[2024-12-19] MEDS ORDERED: ACET-2247 PO (03:05)
[2024-12-19] MEDS ORDERED: ASCO500T10 PO (03:05)
[2024-12-19] MEDS ORDERED: ACET650S14 PR (03:05)
[2024-12-19 04:07] LABS: BASOPHILS # (AUTO) 0.04 K/uL (0.00-0.20); BASOPHILS % (AUTO) 0.3 % (0.0-5.0); EOSINOPHILS # (AUTO) 0.33 K/uL (0.00-0.70); EOSINOPHILS % (AUTO) 2.2 % (0.0-8.0); HEMATOCRIT 29.9 % (36-48); IMMATURE GRANULOCYTE ABSOLUTE 0.17 K/uL (0-1); LYMPHOCYTES # (AUTO) 4.4 K/uL (1.0-4.8); MEAN CORPUSCULAR HEMOGLOBIN 29.3 pg (27.0-33.0); MEAN CORPUSCULAR HGB CONC 32.4 g/dL (32.0-36.0); MEAN CORPUSCULAR VOLUME 90.3 fL (79-99); MONOCYTES # (AUTO) 0.9 K/uL (0.1-1.0); NEUTROPHILS # (AUTO) 9.4 K/uL (1.8-7.7); NEUTROPHILS % (AUTO) 61.4 % (40.0-77.0); PLATELET COUNT (AUTO) 393 K/uL (130-400); RED BLOOD CELL COUNT(AUTO) 3.31 MIL/uL (4.00-5.50); RED CELL DISTRIBUTION WIDTH 13.3 % (11.0-15.5); WHITE BLOOD COUNT (AUTO) 15.3 K/uL (4.8-10.8)
[2024-12-19 04:32] LABS: CREATININE 1.6 mg/dL (0.5-1.0); MAGNESIUM 1.7 mg/dL (1.80-2.40); PHOSPHORUS 3.5 mg/dL (2.5-4.9); POTASSIUM 3.5 mmol/L (3.5-5.1); THYROID STIMULATING HORMONE 1.32 uIU/mL (0.36-3.74)
--- NOTE | 2024-12-19 05:47 | EKG ---
[facility] Test Date: 2024-12-18 Test Time: 20:46:37 Pat Name: FARRAH PARMAR Department: [facility] Room: 220 1 Gender: F It Administrator: [id number] : 1945 Requested By: KERA LOGAN Order Number: [id number] Reading MD: Talib Cardona Measurements Intervals [place] Rate: 89 P: 27 AL: 130 QRS: 51 QRSD: 75 T: 79 QT: 349 QTc: 424 Interpretive Statements Sinus rhythm Compared to ECG 08/05/2024 10:50:40 Atrial abnormality no longer present T-wave abnormality no longer present Electronically Signed On 12-19-2024 11:09:02 CDT by Talib Cardona Please click the below link to view image of tracing.
[2024-12-19] MEDS: ceFEPime HCL 1 GM VIAL IVPB SCH (07:05)
[2024-12-19] MEDS: INSULIN humuLIN R 100 UNIT/ML 3ML SQ SCH (07:17)
[2024-12-19] MEDS: PANTOPrazole 40 MG/VIAL IVP SCH (08:32)
[2024-12-19] MEDS: polyETHYLene GLYCol 3350 17 GM POWD.PACK PO SCH (08:33)
[2024-12-19] MEDS: ASCORBIC ACID 500 MG TAB PO SCH (08:33)
--- NOTE | 2024-12-19 16:52 | PN ---
[facility] PROGRESS NOTE Date Patient Seen: December 19, 2024 Time of Visit: 16:51 Supervising Physician: Dr. Dalton Primary Care Physician: Dr Lewis Outpatient Specialists: [ ] Inpatient Consults: [ ] PROBLEM LIST: Severe sepsis, POA Urinary tract infection, POA Decubitus ulcer, POA Acute kidney injury, POA Hypertension, POA DM type 2, with hyperglycemia, POA Hyperlipidemia, POA Severe calorie malnutrition Chronic debility History of parkinsonism INTERVAL HISTORY: 12/19/2024: At the time of my evaluation, the patient was lying in bed. The staff nurse reports no acute events overnight. She remains on room air and is otherwise hemodynamically stable. No febrile events. Laboratory data today showed a WBC improvement to 15.3 H and H and platelet counts remained stable. Chemistry panel showed a BUN of 19, creatinine of 1.6 and a GFR of 33. Lactic acid 2.7 and a procalcitonin of 0.12. Magnesium count of 1.70. Urine sample was collected and sent for culture. No new imaging was collected. The patient continues on antibiotic therapy with vancomycin and cefepime. She also remains on IV hydration with IV LR. No other complaint. REVIEW OF SYSTEMS: Unable to obtain PHYSICAL EXAM: GENERAL: Lethargic HEENT: EOMI, Sclera non icteric, moist mucosa NECK: Supple, no JVD, trachea midline LUNGS: Clear breath sounds bilaterally. No wheezes HEART: Regular rate and rhythm. Normal S1 and S2, without murmurs ABD: Abdomen soft, nontender. Bowel sounds present EXT: Contracted lower extremities, with multiple sacral ulcers NEURO: Lethargic Vital Signs (last 8hr) Date Time Temp Pulse Resp B/P (MAP) Pulse Ox O2 Delivery O2 Flow Rate FiO2 12/19/24 12:01 98.2 69 16 121/45 97 Room Air LABS: Hematology Labs: Test 12/19/24 03:51 12/18/24 20:50 Range/Units White Blood Count 15.3 #H 4.8-10.8 K/uL Red Blood Count 3.31 L 4.00-5.50 MIL/uL Hemoglobin 9.7 L 12.0-16.0 g/dL Hematocrit 29.9 L 36-48 % Mean Corpuscular Volume 90.3 79-99 fL Mean Corpuscular Hemoglobin 29.3 27.0-33.0 pg Mean Corpuscular Hemoglobin Concent 32.4 32.0-36.0 g/dL Red Cell Distribution Width 13.3 11.0-15.5 % Platelet Count 393 130-400 K/uL Mean Platelet Volume 8.5 7.5-10.5 fL Immature Granulocyte % (Auto) 1.1 H 0-1 % Neutrophils (%) (Auto) 61.4 40.0-77.0 % Lymphocytes (%) (Auto) 29.0 21.0-51.0 % Monocytes (%) (Auto) 6.0 3.0-13.0 % Eosinophils (%) (Auto) 2.2 0.0-8.0 % Basophils (%) (Auto) 0.3 0.0-5.0 % Neutrophils # (Auto) 9.4 H 1.8-7.7 K/uL Lymphocytes # (Auto) 4.4 1.0-4.8 K/uL Monocytes # (Auto) 0.9 0.1-1.0 K/uL Eosinophils # (Auto) 0.33 0.00-0.70 K/uL Basophils # (Auto) 0.04 0.00-0.20 K/uL Absolute Immature Granulocyte (auto 0.17 0-1 K/uL Nucleated Red Blood Cells 0.0 0.0-0.19 % Segmented Neutrophils % 62 40-70 % Band Neutrophils % 8 H 0-2 % Lymphocytes % (Manual) 10 L 22-44 % Monocytes % (Manual) 5 2-9 % Eosinophils % (Manual) 2 1-6 % Differential Comment MANUAL DIFFERENTIAL Reactive Lymphocytes 13 H 0-0 % White Cell Morphology Comment NO IMMATURE CELLS Platelet Morphology Comment Red Blood Cell Morphology See comments Chemistry Labs: Test 12/19/24 16:00 12/19/24 03:51 12/19/24 01:08 12/18/24 20:50 Range/Units Whole Blood Glucose 88 70-110 MG/DL Sodium Level 141 136-145 mmol/L Potassium Level 3.5 3.5-5.1 mmol/L Chloride Level 109 101-111 mmol/L Carbon Dioxide Level 25 21-32 mmol/L Blood Urea Nitrogen 19 H 7-18 mg/dL Creatinine 1.6 H 0.5-1.0 mg/dL Glomerular Filtration Rate Calc 33 >90 mL/min Random Glucose 101 70-105 mg/dL Total Calcium 7.7 L 8.5-10.1 mg/dL Phosphorus Level 3.5 2.5-4.9 mg/dL Magnesium Level 1.70 L 1.80-2.40 mg/dL Procalcitonin 0.12 0.05-0.5 ng/mL Thyroid Stimulating Hormone (TSH) 1.32 0.36-3.74 uIU/mL Lactic Acid Level 2.7 H 0.8-2.5 mmol/L Total Bilirubin 0.5 0.2-1.0 mg/dL Aspartate Amino Transf (AST/SGOT) 23 10-37 U/L Alanine Aminotransferase (ALT/SGPT) 23 12-78 U/L Alkaline Phosphatase 155 H 50-136 U/L Total Creatine Kinase 190 # 21-232 U/L Troponin I High Sensitivity 7 4-50 ng/L Total Protein 6.6 6.0-8.3 g/dL Albumin 3.2 L 3.5-5.0 g/dL DIAGNOSTICS / RADIOLOGY RESULTS: [ ] PLAN 12/19/2024: For now, going to continue antibiotic therapy for the patient and we will follow the urine culture results. We will continue IV hydration. We will monitor the progress and response to management. Wound care has been consulted and pending to see the patient. The patient was recently at a nursing home facility and based on my understanding, she was discharged and sent home due to financial issues. The patient has multiple sacral wounds and is contracted. As there is adequate care concern, I am going to consult case management for an APS referral. I discussed the findings and plan for further management with the staff nurse in present of the patient. We will monitor the patient's progress and response to management. We will continue to provide general supportive care, GI and DVT prophylaxis. Further orders per attending MD and hospital course. NEURO: Minimize central acting medications as possible. Maintain fall precautions, adequate lighting during the day PULMONARY: Supplemental 02 as needed. Maintain aspiration precautions at all times CARDIOVASCULAR: Follow hemodynamics. Vital signs per facility protocol GI & NUTRITION: Continue with nutritional support. Continue stool softeners and laxatives as needed. KIDNEYS & ELECTROLYTES: Strict monitoring of intake, output and overall fluid balance. Avoid nephrotoxic medications to the extent possible. Medications to be dosed according to renal function. Monitor electrolytes and replace as needed ENDOCRINE: Maintain blood glucose between 100-180 at all times. Hypoglycemia protocol in place INFECTIOUS DISEASE: Trend temperature, WBC and procalcitonin level Follow cultures, deescalate antibiotics as soon as possible. Panculture if new onset fever ONCOLOGY/HEMATOLOGY/COAGULATION: Monitor for s/s of bleeding Monitor hemoglobin, coagulation studies as needed SKIN: Pressure ulcer prevention per facility protocol Specialty mattress ORTHO/REHAB: Continue PT/OT Prophylaxis: Continue GI and DVT prophylaxis Code Status: Full Resuscitation Disposition: TBD Other: Patient was seen and case was discussed with gage REEDER. Plan of care was di scussed and agreed upon. BEV [employer]OTE [employer] QUAL[employer]OL ENGINEER December 19, 2024 16:52
--- NOTE | 2024-12-19 17:11 | NUR ---
cm note information obtained from pt, no answer by son at listed ph# [phone]. pt states is bed an chairbound lives with son, has w/c, hospital bed, wears adult briefs, requires max assist with all adls. states no provider. no home health. dcp home vs snf. Addendum: 12/19/24 at 1717 by CATHI ROJAS Amended: Links added.
[2024-12-19] MEDS ORDERED: MAGNESIUM 2GM PREMIX 50ML 50 ML IV SCH (23:30)
[2024-12-20] VITALS (10 sets, daily range): BP systolic 119–145; BP diastolic 34–55; PULSE 65–77; RESP 15–18; TEMP 97.6–98.8; O2SAT 95–99
[2024-12-20] MEDS: PoTASSium chloRIDE 20MEQ/100ML 100 ML IV ONE (01:31)
[2024-12-20] MEDS: VANCOMYCIN 500MG+NS 100ML 100 ML IV SCH (01:33)
[2024-12-20 03:39] LABS: BASOPHILS # (AUTO) 0.04 K/uL (0.00-0.20); BASOPHILS % (AUTO) 0.4 % (0.0-5.0); EOSINOPHILS # (AUTO) 0.62 K/uL (0.00-0.70); EOSINOPHILS % (AUTO) 5.6 % (0.0-8.0); HEMATOCRIT 25.4 % (36-48); IMMATURE GRANULOCYTE ABSOLUTE 0.11 K/uL (0-1); LYMPHOCYTES # (AUTO) 2.6 K/uL (1.0-4.8); LYMPHOCYTES % (AUTO) 23.5 % (21.0-51.0); MEAN CORPUSCULAR HEMOGLOBIN 29.8 pg (27.0-33.0); MEAN CORPUSCULAR HGB CONC 33.5 g/dL (32.0-36.0); MEAN CORPUSCULAR VOLUME 89.1 fL (79-99); MONOCYTES # (AUTO) 0.8 K/uL (0.1-1.0); MONOCYTES % (AUTO) 6.9 % (3.0-13.0); NEUTROPHILS # (AUTO) 6.9 K/uL (1.8-7.7); NEUTROPHILS % (AUTO) 62.6 % (40.0-77.0); PLATELET COUNT (AUTO) 312 K/uL (130-400); RED BLOOD CELL COUNT(AUTO) 2.85 MIL/uL (4.00-5.50); RED CELL DISTRIBUTION WIDTH 13.2 % (11.0-15.5)
[2024-12-20 03:59] LABS: CREATININE 1.4 mg/dL (0.5-1.0); POTASSIUM 4.4 mmol/L (3.5-5.1)
--- NOTE | 2024-12-20 11:59 | NUR ---
Paty spoke to local APS office. Pt has no open case at this time. last case was in 2020. PATY spoke to Vadim at [facility]. Pt was discharged home on 11/08/24 to son Song. NM reports son did not want terminal operations supervisor placement for pt. Pt was at [facility] from 08/08/24 to 11/08/24. Per Vadim at time of discharge, pt's wound on hip was healed and sore on sacrum was .4x.5. Appt was made with PCP Talib Lewis so that HH could be arranged.
--- NOTE | 2024-12-20 12:17 | NUR ---
APS # [id number] Sw attempted to reach son at [phone] (left message) [phone] (left message). Also attempted to reach Marielos Quinnon [phone], (left message) MPOA on chart is not valid, signature and witnesses are missing. PATY made APS report to [facility] [place] ID# [id number]. Pending APS casewker to be assigned.
--- NOTE | 2024-12-20 15:12 | NUR ---
[facility] Consult: Patient assessed by wound healing team. See wound assessment. Assessment and recommendations provided to primary nurse. Education provided. Wound care done. Addendum: 12/21/24 at 1609 by DANA ACUNA RN RN/ Amended: Links added.
--- NOTE | 2024-12-20 17:04 | PN ---
[facility] PROGRESS NOTE Date Patient Seen: December 20, 2024 Time of Visit: 17:02 Supervising Physician: Dr. Dalton Primary Care Physician: Dr Lewis Outpatient Specialists: [ ] Inpatient Consults: [ ] PROBLEM LIST: Severe sepsis, POA Urinary tract infection, POA Decubitus ulcer, POA Acute kidney injury, POA Hypertension, POA DM type 2, with hyperglycemia, POA Hyperlipidemia, POA Severe calorie malnutrition Chronic debility History of parkinsonism INTERVAL HISTORY: 12/19/2024: At the time of my evaluation, the patient was lying in bed. The staff nurse reports no acute events overnight. She remains on room air and is otherwise hemodynamically stable. No febrile events. Laboratory data today showed a WBC improvement to 15.3 H and H and platelet counts remained stable. Chemistry panel showed a BUN of 19, creatinine of 1.6 and a GFR of 33. Lactic acid 2.7 and a procalcitonin of 0.12. Magnesium count of 1.70. Urine sample was collected and sent for culture. No new imaging was collected. The patient continues on antibiotic therapy with vancomycin and cefepime. She also remains on IV hydration with IV LR. No other complaint. 12/20/2024: At the time of my evaluation, the patient was lying in bed. She remains on room air and out the monitor she is hemodynamically stable. Laboratory data today showed improved WBC count now 11.0 H&H and platelet count are stable. Renal parameters are improving with a BUN of 16, creatinine of 1.4 and a GFR of 38. Microbiology data showing urine sample growing Gram-negative rods. No new imaging for today. Patient remains on antibiotic therapy with cefepime and vanco. No other complaint. REVIEW OF SYSTEMS: Unable to obtain PHYSICAL EXAM: GENERAL: Lethargic HEENT: EOMI, Sclera non icteric, moist mucosa NECK: Supple, no JVD, trachea midline LUNGS: Clear breath sounds bilaterally. No wheezes HEART: Regular rate and rhythm. Normal S1 and S2, without murmurs ABD: Abdomen soft, nontender. Bowel sounds present EXT: Contracted lower extremities, with multiple sacral ulcers NEURO: Lethargic Vital Signs (last 8hr) Date Time Temp Pulse Resp B/P (MAP) Pulse Ox O2 Delivery O2 Flow Rate FiO2 12/20/24 16:37 97.9 75 16 144/50 98 Room Air 12/20/24 13:08 97.9 68 16 136/52 99 Room Air LABS: Hematology Labs: Test 12/20/24 03:30 12/18/24 20:50 Range/Units White Blood Count 11.0 #H 4.8-10.8 K/uL Red Blood Count 2.85 L 4.00-5.50 MIL/uL Hemoglobin 8.5 L 12.0-16.0 g/dL Hematocrit 25.4 L 36-48 % Mean Corpuscular Volume 89.1 79-99 fL Mean Corpuscular Hemoglobin 29.8 27.0-33.0 pg Mean Corpuscular Hemoglobin Concent 33.5 32.0-36.0 g/dL Red Cell Distribution Width 13.2 11.0-15.5 % Platelet Count 312 130-400 K/uL Mean Platelet Volume 8.3 7.5-10.5 fL Immature Granulocyte % (Auto) 1.0 0-1 % Neutrophils (%) (Auto) 62.6 40.0-77.0 % Lymphocytes (%) (Auto) 23.5 21.0-51.0 % Monocytes (%) (Auto) 6.9 3.0-13.0 % Eosinophils (%) (Auto) 5.6 0.0-8.0 % Basophils (%) (Auto) 0.4 0.0-5.0 % Neutrophils # (Auto) 6.9 1.8-7.7 K/uL Lymphocytes # (Auto) 2.6 1.0-4.8 K/uL Monocytes # (Auto) 0.8 0.1-1.0 K/uL Eosinophils # (Auto) 0.62 0.00-0.70 K/uL Basophils # (Auto) 0.04 0.00-0.20 K/uL Absolute Immature Granulocyte (auto 0.11 0-1 K/uL Nucleated Red Blood Cells 0.0 0.0-0.19 % Segmented Neutrophils % 62 40-70 % Band Neutrophils % 8 H 0-2 % Lymphocytes % (Manual) 10 L 22-44 % Monocytes % (Manual) 5 2-9 % Eosinophils % (Manual) 2 1-6 % Differential Comment MANUAL DIFFERENTIAL Reactive Lymphocytes 13 H 0-0 % White Cell Morphology Comment NO IMMATURE CELLS Platelet Morphology Comment Red Blood Cell Morphology See comments Chemistry Labs: Test 12/20/24 12:16 12/20/24 03:30 12/19/24 03:51 12/19/24 01:08 Range/Units Whole Blood Glucose 81 70-110 MG/DL Sodium Level 140 136-145 mmol/L Potassium Level 4.4 3.5-5.1 mmol/L Chloride Level 109 101-111 mmol/L Carbon Dioxide Level 25 21-32 mmol/L Blood Urea Nitrogen 16 7-18 mg/dL Creatinine 1.4 H 0.5-1.0 mg/dL Glomerular Filtration Rate Calc 38 >90 mL/min Random Glucose 85 70-105 mg/dL Total Calcium 8.0 L 8.5-10.1 mg/dL Total Creatine Kinase 45 # 21-232 U/L Phosphorus Level 3.5 2.5-4.9 mg/dL Magnesium Level 1.70 L 1.80-2.40 mg/dL Procalcitonin 0.12 0.05-0.5 ng/mL Thyroid Stimulating Hormone (TSH) 1.32 0.36-3.74 uIU/mL Lactic Acid Level 2.7 H 0.8-2.5 mmol/L Test 12/18/24 20:50 Range/Units Total Bilirubin 0.5 0.2-1.0 mg/dL Aspartate Amino Transf (AST/SGOT) 23 10-37 U/L Alanine Aminotransferase (ALT/SGPT) 23 12-78 U/L Alkaline Phosphatase 155 H 50-136 U/L Troponin I High Sensitivity 7 4-50 ng/L Total Protein 6.6 6.0-8.3 g/dL Albumin 3.2 L 3.5-5.0 g/dL DIAGNOSTICS / RADIOLOGY RESULTS: [ ] PLAN 12/19/2024: For now, going to continue antibiotic therapy for the patient and we will follow the urine culture results. We will continue IV hydration. We will monitor the progress and response to management. Wound care has been consulted and pending to see the patient. The patient was recently at a [facility] facility and based on my understanding, she was discharged and sent home due to financial issues. The patient has multiple sacral wounds and is contracted. As there is adequate care concern, I am going to consult case management for an APS referral. I discussed the findings and plan for further management with the staff nurse in present of the patient. We will monitor the patient's progress and response to management. We will continue to provide general supportive care, GI and DVT prophylaxis. Further orders per attending MD and hospital cour se. 12/20/2024: For now, going to continue current management for the patient. We are currently awaiting speech therapy evaluation. I did discuss with the staff nurse to perform a bedside swallow for consult with the staff at the longterm she was discharged from, to inquire on her feeding means. Wound care was into evaluate the patient today and we will follow their recommendations for management. APS case was opened. We are going to continue antibiotic therapy but we will stop vanco considering the growth is Gram-negative rods. We will follow the culture and sensitivity report. I discussed the findings and plan for further management with the patient and staff nurse. We will monitor the patient's progress and response to management. We will continue to provide general supportive care, GI and DVT prophylaxis. Further orders per attending MD and hospital course. NEURO: Minimize central acting medications as possible. Maintain fall precautions, adequate lighting during the day PULMONARY: Supplemental 02 as needed. Maintain aspiration precautions at all times CARDIOVASCULAR: Follow hemodynamics. Vital signs per facility protocol GI & NUTRITION: Continue with nutritional support. Continue stool softeners and laxatives as needed. KIDNEYS & ELECTROLYTES: Strict monitoring of intake, output and overall fluid balance. Avoid nephrotoxic medications to the extent possible. Medications to be dosed according to renal function. Monitor electrolytes and replace as needed ENDOCRINE: Maintain blood glucose between 100-180 at all times. Hypoglycemia protocol in place INFECTIOUS DISEASE: Trend temperature, WBC and procalcitonin level Follow cultures, deescalate antibiotics as soon as possible. Panculture if new onset fever ONCOLOGY/HEMATOLOGY/COAGULATION: Monitor for s/s of bleeding Monitor hemoglobin, coagulation studies as needed SKIN: Pressure ulcer prevention per facility protocol Specialty mattress ORTHO/REHAB: Continue PT/OT Prophylaxis: Continue GI and DVT prophylaxis Code Status: Full Resuscitation Disposition: TBD Other: Patient was seen and case was discussed with gage REEDER. Plan of care was discussed and agreed upon. BEV COTE NP December 20, 2024 17:04
[2024-12-20] MEDS: acetaMINOPHEN 325 MG TAB PO PRN (22:27)
[2024-12-21] VITALS (11 sets, daily range): BP systolic 121–164; BP diastolic 46–77; PULSE 60–78; RESP 16–18; TEMP 97.7–98; O2SAT 96–97
--- NOTE | 2024-12-21 05:14 | NUR ---
Song / Son contact note [id number] Pt's emergency contact/son Song Lane calls for update. Per son, phone has been disconnected. Son states having difficulties with caring for pt at home and needs help, but providers ordered by PCP never came by. Current reachable # [phone]. Son to be coming in to talk to case mgmt to discuss DCP.
[2024-12-21 06:26] LABS: BASOPHILS # (AUTO) 0.05 K/uL (0.00-0.20); BASOPHILS % (AUTO) 0.6 % (0.0-5.0); EOSINOPHILS # (AUTO) 0.67 K/uL (0.00-0.70); EOSINOPHILS % (AUTO) 7.5 % (0.0-8.0); HEMATOCRIT 25.4 % (36-48); IMMATURE GRANULOCYTE ABSOLUTE 0.07 K/uL (0-1); LYMPHOCYTES # (AUTO) 2.2 K/uL (1.0-4.8); LYMPHOCYTES % (AUTO) 25.1 % (21.0-51.0); MEAN CORPUSCULAR HEMOGLOBIN 29.3 pg (27.0-33.0); MEAN CORPUSCULAR HGB CONC 32.7 g/dL (32.0-36.0); MEAN CORPUSCULAR VOLUME 89.8 fL (79-99); MONOCYTES # (AUTO) 0.7 K/uL (0.1-1.0); MONOCYTES % (AUTO) 7.6 % (3.0-13.0); NEUTROPHILS # (AUTO) 5.2 K/uL (1.8-7.7); NEUTROPHILS % (AUTO) 58.4 % (40.0-77.0); PLATELET COUNT (AUTO) 314 K/uL (130-400); RED BLOOD CELL COUNT(AUTO) 2.83 MIL/uL (4.00-5.50); WHITE BLOOD COUNT (AUTO) 8.9 K/uL (4.8-10.8)
[2024-12-21 06:35] LABS: CREATININE 1.4 mg/dL (0.5-1.0)
--- NOTE | 2024-12-21 09:40 | PN ---
[facility] PROGRESS NOTE Date Patient Seen: December 21, 2024 Time of Visit: 09:40 Supervising Physician: Elton Dalton MD Primary Care Physician: Dr Lewis Outpatient Specialists: [ ] Inpatient Consults: [ ] PROBLEM LIST: Severe sepsis, POA Acute cystitis + E coli ESBL, POA Multiple Decubitus ulcers, POA (Including sacrum stage IV, Left and rt hip, Left knee deep tissue injury, Rt ankle deep tissue injury, Rt side of back stage II) Acute kidney injury, POA Hypertension, POA DM type 2, with hyperglycemia, POA Hyperlipidemia, POA Severe calorie malnutrition Chronic debility History of parkinsonism INTERVAL HISTORY: 12/19/2024: At the time of my evaluation, the patient was lying in bed. The staff nurse reports no acute events overnight. She remains on room air and is otherwise hemodynamically stable. No febrile events. Laboratory data today showed a WBC improvement to 15.3 H and H and platelet counts remained stable. Chemistry panel showed a BUN of 19, creatinine of 1.6 and a GFR of 33. Lactic acid 2.7 and a procalcitonin of 0.12. Magnesium count of 1.70. Urine sample was collected and sent for culture. No new imaging was collected. The patient continues on antibiotic therapy with vancomycin and cefepime. She also remains on IV hydration with IV LR. No other complaint. 12/20/2024: At the time of my evaluation, the patient was lying in bed. She remains on room air and out the monitor she is hemodynamically stable. Laboratory data today showed improved WBC count now 11.0 H&H and platelet count are stable. Renal parameters are improving with a BUN of 16, creatinine of 1.4 and a GFR of 38. Microbiology data showing urine sample growing Gram-negative rods. No new imaging for today. Patient remains on antibiotic therapy with cefepime and vanco. No other complaint. 12/21/24 Pt is awake alert and oriented. Had been evaluated by wound care team has been fount to have multiple pressures ulcers. Urine culture grem E coli ESBL. [facility]. otherwise no major overnight events.Hemodynamically stable. no fevers. white count normalized, CR stabilizing at 1.4, REVIEW OF SYSTEMS: Unable to obtain PHYSICAL EXAM: GENERAL: awake alert and oriented. HEENT: EOMI, Sclera non icteric, moist mucosa NECK: Supple, no JVD, trachea midline LUNGS: Clear breath sounds bilaterally. No wheezes HEART: Regular rate and rhythm. Normal S1 and S2, without murmurs ABD: Abdomen soft, nontender. Bowel sounds present EXT: Contracted lower extremities, with multiple sacral ulcers NEURO: aaox2-3. following commands. Vital Signs (last 8hr) Date Time Temp Pulse Resp B/P (MAP) Pulse Ox O2 Delivery O2 Flow Rate FiO2 12/21/24 08:50 97.7 60 16 132/56 98 Room Air 12/21/24 07:00 76 18 N/A Room Air 21 12/21/24 03:10 97.9 60 18 128/46 97 Room Air LABS: Hematology Labs: Test 12/21/24 06:10 Range/Units White Blood Count 8.9 4.8-10.8 K/uL Red Blood Count 2.83 L 4.00-5.50 MIL/uL Hemoglobin 8.3 L 12.0-16.0 g/dL Hematocrit 25.4 L 36-48 % Mean Corpuscular Volume 89.8 79-99 fL Mean Corpuscular Hemoglobin 29.3 27.0-33.0 pg Mean Corpuscular Hemoglobin Concent 32.7 32.0-36.0 g/dL Red Cell Distribution Width 13.0 11.0-15.5 % Platelet Count 314 130-400 K/uL Mean Platelet Volume 8.3 7.5-10.5 fL Immature Granulocyte % (Auto) 0.8 0-1 % Neutrophils (%) (Auto) 58.4 40.0-77.0 % Lymphocytes (%) (Auto) 25.1 21.0-51.0 % Monocytes (%) (Auto) 7.6 3.0-13.0 % Eosinophils (%) (Auto) 7.5 0.0-8.0 % Basophils (%) (Auto) 0.6 0.0-5.0 % Neutrophils # (Auto) 5.2 1.8-7.7 K/uL Lymphocytes # (Auto) 2.2 1.0-4.8 K/uL Monocytes # (Auto) 0.7 0.1-1.0 K/uL Eosinophils # (Auto) 0.67 0.00-0.70 K/uL Basophils # (Auto) 0.05 0.00-0.20 K/uL Absolute Immature Granulocyte (auto 0.07 0-1 K/uL Nucleated Red Blood Cells 0.0 0.0-0.19 % Chemistry Labs: Test 12/21/24 06:10 12/20/24 20:40 12/20/24 03:30 Range/Units Sodium Level 144 136-145 mmol/L Potassium Level 4.0 3.5-5.1 mmol/L Chloride Level 109 101-111 mmol/L Carbon Dioxide Level 30 21-32 mmol/L Blood Urea Nitrogen 15 7-18 mg/dL Creatinine 1.4 H 0.5-1.0 mg/dL Glomerular Filtration Rate Calc 38 >90 mL/min Random Glucose 83 70-105 mg/dL Total Calcium 7.9 L 8.5-10.1 mg/dL Whole Blood Glucose 91 70-110 MG/DL Total Creatine Kinase 45 # 21-232 U/L DIAGNOSTICS / RADIOLOGY RESULTS: [ ] PLAN Add meropenem DC cefepime continue wound care per woundcare team recommendation Pt to eval and treat and CM for Safe DC Planning. NEURO: Minimize central acting medications as possible. Maintain fall precautions, adequate lighting during the day PULMONARY: Supplemental 02 as needed. Maintain aspiration precautions at all times CARDIOVASCULAR: Follow hemodynamics. Vital signs per facility protocol GI & NUTRITION: Continue with nutritional support. Continue stool softeners and laxatives as needed. KIDNEYS & ELECTROLYTES: Strict monitoring of intake, output and overall fluid balance. Avoid nephrotoxic medications to the extent possible. Medications to be dosed according to renal function. Monitor electrolytes and replace as needed ENDOCRINE: Maintain blood glucose between 100-180 at all times. Hypoglycemia protocol in place INFECTIOUS DISEASE: Trend temperature, WBC and procalcitonin level Follow cultures, deescalate antibiotics as soon as possible. Panculture if new onset fever ONCOLOGY/HEMATOLOGY/COAGULATION: Monitor for s/s of bleeding Monitor hemoglobin, coagulation studies as needed SKIN: Pressure ulcer prevention per facility protocol Specialty mattress ORTHO/REHAB: Continue PT/OT Prophylaxis: Continue GI and DVT prophylaxis Code Status: Full Resuscitation Disposition: TBD Other: Patient was seen and case was discussed with gage REEDER. Plan of care was discussed and agreed upon. ATTESTATION BY PHYSICIAN I attest that I reviewed and discussed the case with the Physician Manager Internal as well as agree with the Physician Manager Internal's findings, plans of care, and documentation above. Elton Boyer MD, NELLY [facility] December 21, 2024 09:40
[2024-12-21] MEDS: HONEY 1 APPL/ML TUBE TP SCH (09:53)
--- NOTE | 2024-12-21 11:44 | NUR ---
Nutritional Note: Pt has hx of DM2, 24 hrBG 81-91mg/dl. Pt reported unintentional wt loss and poor appetite on admission. Wounds present sacral ulcers. Pt appears lethargic with clinical signs of nutritional compromise, s/s of muscle wasting/fat loss. Recommend: -Ensure 1 can BID and PRN if PO intake <75% of meals taken -Nephrovite MVI combination of B vitamins may be used to treat or prevent vitamin deficiency due to poor diet. -Magic Cup 4oz w/ PM tray: Provides 9gm pro/ 290kcal and 20 vitamins and minerals. [place] to serve with meals as a means of adding calories and protein for unintended weight loss. -ProStat BID (30 ml) JELLO - Electrolyte replacements per protocol -Monitor feeding tolerance, %, wt, and labs -Document PO intake and wt daily. -If No BM >3days consider bowel stimulant. -Schedule outpatient RD f/u for long-term nutrition care. - Notify RD if additional nutrition concerns arise. SEE RD Nutritional Assessment for additional assessment information. Addendum: 12/21/24 at [address] Amended: Links added.
[2024-12-21] MEDS ORDERED: PHARMACY COMMUNICATION 1 EACH EACH MISC SCH (19:00)
[2024-12-21] MEDS ORDERED: hydrALAZine 25MG TABLET PO PRN (19:30)
[2024-12-21] MEDS ORDERED: doCUSate SODIUM 100 MG CAP PO PRN (19:30)
[2024-12-21] MEDS: amLODIPine 5 MG TAB PO SCH (21:04)
[2024-12-21] MEDS: MEROPENEM 500MG 500 MG VIAL IVPB SCH (21:04)
[2024-12-21] MEDS: atorVAStatin 40 MG TABLET PO SCH (21:04)
[2024-12-22] VITALS (9 sets, daily range): BP systolic 124–147; BP diastolic 63–76; PULSE 59–77; RESP 16–18; TEMP 98.1–98.6; O2SAT 88–99
[2024-12-22 04:47] LABS: BASOPHILS # (AUTO) 0.05 K/uL (0.00-0.20); BASOPHILS % (AUTO) 0.5 % (0.0-5.0); EOSINOPHILS # (AUTO) 0.63 K/uL (0.00-0.70); EOSINOPHILS % (AUTO) 6.4 % (0.0-8.0); HEMATOCRIT 25.8 % (36-48); IMMATURE GRANULOCYTE ABSOLUTE 0.08 K/uL (0-1); LYMPHOCYTES # (AUTO) 2.5 K/uL (1.0-4.8); LYMPHOCYTES % (AUTO) 25.2 % (21.0-51.0); MEAN CORPUSCULAR HEMOGLOBIN 29.4 pg (27.0-33.0); MEAN CORPUSCULAR HGB CONC 33.7 g/dL (32.0-36.0); MEAN CORPUSCULAR VOLUME 87.2 fL (79-99); MONOCYTES # (AUTO) 0.7 K/uL (0.1-1.0); MONOCYTES % (AUTO) 7.5 % (3.0-13.0); NEUTROPHILS # (AUTO) 5.9 K/uL (1.8-7.7); NEUTROPHILS % (AUTO) 59.6 % (40.0-77.0); PLATELET COUNT (AUTO) 322 K/uL (130-400); RED BLOOD CELL COUNT(AUTO) 2.96 MIL/uL (4.00-5.50); RED CELL DISTRIBUTION WIDTH 12.9 % (11.0-15.5); WHITE BLOOD COUNT (AUTO) 9.9 K/uL (4.8-10.8)
[2024-12-22 05:04] LABS: CREATININE 1.6 mg/dL (0.5-1.0); POTASSIUM 3.7 mmol/L (3.5-5.1)
[2024-12-22] MEDS ORDERED: hydrALAZine HCL 10 MG TABLET PO PRN (09:30)
[2024-12-22] MEDS: CARBIDOPA-LEVODOPA 25-100 TAB PO SCH (09:31)
[2024-12-22] MEDS: ZINC SULFATE 220 CAPSULE PO SCH (09:31)
[2024-12-22] MEDS: PROTEIN SUPPLEMENT 946 ML BOTTLE PO SCH (09:41)
--- NOTE | 2024-12-22 15:11 | PN ---
[facility] PROGRESS NOTE Date Patient Seen: December 22, 2024 Time of Visit: 15:05 Supervising Physician: Jez Null MD Primary Care Physician: Dr Lewis Outpatient Specialists: [ ] Inpatient Consults: [ ] PROBLEM LIST: Severe sepsis, POA Acute cystitis + E coli ESBL, POA Multiple Decubitus ulcers, POA (Including sacrum stage IV, Left and rt hip, Left knee deep tissue injury, Rt ankle deep tissue injury, Rt side of back stage II) Acute kidney injury, POA Hypertension, POA DM type 2, with hyperglycemia, POA Hyperlipidemia, POA Severe calorie malnutrition Chronic debility History of parkinsonism INTERVAL HISTORY: 12/19/2024: At the time of my evaluation, the patient was lying in bed. The staff nurse reports no acute events overnight. She remains on room air and is otherwise hemodynamically stable. No febrile events. Laboratory data today showed a WBC improvement to 15.3 H and H and platelet counts remained stable. Chemistry panel showed a BUN of 19, creatinine of 1.6 and a GFR of 33. Lactic acid 2.7 and a procalcitonin of 0.12. Magnesium count of 1.70. Urine sample was collected and sent for culture. No new imaging was collected. The patient continues on antibiotic therapy with vancomycin and cefepime. She also remains on IV hydration with IV LR. No other complaint. 12/20/2024: At the time of my evaluation, the patient was lying in bed. She remains on room air and out the monitor she is hemodynamically stable. La boratory data today showed improved WBC count now 11.0 H&H and platelet count are stable. Renal parameters are improving with a BUN of 16, creatinine of 1.4 and a GFR of 38. Microbiology data showing urine sample growing Gram-negative rods. No new imaging for today. Patient remains on antibiotic therapy with cefepime and vanco. No other complaint. 12/21/24 Pt is awake alert and oriented. Had been evaluated by wound care team has been fount to have multiple pressures ulcers. Urine culture grem E coli ESBL. [facility]. otherwise no major overnight events.Hemodynamically stable. no fevers. white count normalized, CR stabilizing at 1.4, 12/22/24- patient is awake alert and oriented x2-3. Patient denies any pain at t his time. She reports feeling slightly better. Currently in no apparent distress saturating 99% on room air heart rate in the 70s respiratory rate of 16 unlabored. She is hemodynamically stable with a blood pressure 124/63 and afebrile. She is doing well with the antibiotic white count continues normalized H&H is stable 8.7/25.8 slightly increased. Creatinine 1.6 GFR 33 consistent with her CKD. Patient continues with meropenem for ESBL of the urine. She is currently pending placement at LTAC. Case management aware and working on disposition. Pt for eval and recs with treatment. REVIEW OF SYSTEMS: General: No malaise or fever. Neurological: No fainting episodes or seizures. HEENT: No nasal congestion or nasal secretion. Respiratory: No cough, shortness of breath, or wheezing Cardiac: No chest pain or palpitations. Gastrointestinal: No vomiting or diarrhea. Genitourinary: No dysuria hematuria. Skin: No rashes or lesions. Hematological: No bruises or bleeding. Musculoskeletal:Yes for arthralgias. Psychiatric: No depression or panic attacks. PHYSICAL EXAM: GENERAL: awake alert and oriented. HEENT: EOMI, Sclera non icteric, moist mucosa NECK: Supple, no JVD, trachea midline LUNGS: Clear breath sounds bilaterally. No wheezes HEART: Regular rate and rhythm. Normal S1 and S2, without murmurs ABD: Abdomen soft, nontender. Bowel sounds present EXT: Contracted lower extremities, with multiple sacral ulcers NEURO: aaox2-3. following commands. Vital Signs (last 8hr) Date Time Temp Pulse Resp B/P (MAP) Pulse Ox O2 Delivery O2 Flow Rate FiO2 12/22/24 12:00 98.6 77 16 124/63 99 Room Air 12/22/24 08:00 98.1 59 16 136/69 98 Room Air 12/22/24 07:21 68 18 N/A Room Air 21 LABS: Hematology Labs: Test 12/22/24 04:04 Range/Units White Blood Count 9.9 4.8-10.8 K/uL Red Blood Count 2.96 L 4.00-5.50 MIL/uL Hemoglobin 8.7 L 12.0-16.0 g/dL Hematocrit 25.8 L 36-48 % Mean Corpuscular Volume 87.2 79-99 fL Mean Corpuscular Hemoglobin 29.4 27.0-33.0 pg Mean Corpuscular Hemoglobin Concent 33.7 32.0-36.0 g/dL Red Cell Distribution Width 12.9 11.0-15.5 % Platelet Count 322 130-400 K/uL Mean Platelet Volume 8.5 7.5-10.5 fL Immature Granulocyte % (Auto) 0.8 0-1 % Neutrophils (%) (Auto) 59.6 40.0-77.0 % Lymphocytes (%) (Auto) 25.2 21.0-51.0 % Monocytes (%) (Auto) 7.5 3.0-13.0 % Eosinophils (%) (Auto) 6.4 0.0-8.0 % Basophils (%) (Auto) 0.5 0.0-5.0 % Neutrophils # (Auto) 5.9 1.8-7.7 K/uL Lymphocytes # (Auto) 2.5 1.0-4.8 K/uL Monocytes # (Auto) 0.7 0.1-1.0 K/uL Eosinophils # (Auto) 0.63 0.00-0.70 K/uL Basophils # (Auto) 0.05 0.00-0.20 K/uL Absolute Immature Granulocyte (auto 0.08 0-1 K/uL Nucleated Red Blood Cells 0.0 0.0-0.19 % Chemistry Labs: Test 12/22/24 12:13 12/22/24 04:04 Range/Units Whole Blood Glucose 118 H 70-110 MG/DL Sodium Level 142 136-145 mmol/L Potassium Level 3.7 3.5-5.1 mmol/L Chloride Level 107 101-111 mmol/L Carbon Dioxide Level 28 21-32 mmol/L Blood Urea Nitrogen 20 H 7-18 mg/dL Creatinine 1.6 H 0.5-1.0 mg/dL Glomerular Filtration Rate Calc 33 >90 mL/min Random Glucose 111 H 70-105 mg/dL Total Calcium 7.6 L 8.5-10.1 mg/dL DIAGNOSTICS / RADIOLOGY RESULTS: [ ] PLAN continue meropenem continue wound care per woundcare team recommendation Pt to eval and treat and CM for Safe DC Planning. PT to eval and treat NEURO: Minimize central acting medications as possible. Maintain fall precautions, adequate lighting during the day PULMONARY: Supplemental 02 as needed. Maintain aspiration precautions at all times CARDIOVASCULAR: Follow hemodynamics. Vital signs per facility protocol GI & NUTRITION: Continue with nutritional support. Continue stool softeners and laxatives as needed. KIDNEYS & ELECTROLYTES: Strict monitoring of intake, output and overall fluid balance. Avoid nephrotoxic medications to the extent possible. Medications to be dosed according to renal function. Monitor electrolytes and replace as needed ENDOCRINE: Maintain blood glucose between 100-180 at all times. Hypoglycemia protocol in place INFECTIOUS DISEASE: Trend temperature, WBC and procalcitonin level Follow cultures, deescalate antibiotics as soon as possible. Panculture if new onset fever ONCOLOGY/HEMATOLOGY/COAGULATION: Monitor for s/s of bleeding Monitor hemoglobin, coagulation studies as needed SKIN: Pressure ulcer prevention per facility protocol Specialty mattress ORTHO/REHAB: Continue PT/OT Prophylaxis: Continue GI and DVT prophylaxis Code Status: Full Resuscitation Disposition: medical surgical Other: Patient was seen and case was discussed with gage REEDER. Plan of care was discussed and agreed upon. ATTESTATION BY PHYSICIAN I reviewed the documentation, medical decision making, and treatment plan as noted by the mid-level provider above. I agree with the findings and plan of care. Jez Null MD, NELLY J ARNP December 22, 2024 15:11
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
--- NOTE | 2024-12-22 16:50 | HMCIMG ---
RENAL ULTRASOUND Findings: Examination shows normal renal size and echogenicity bilaterally. Preserved cortical thickness and corticomedullary junction region is seen. No hydronephrosis or calculi are seen. No renal masses are seen. There is no evidence of perinephric fluid on either side. No ureteral dilatation. Right kidney shows simple cysts of the lower pole. IMPRESSION: Simple cysts of the right kidney. Otherwise unremarkable.
--- NOTE | 2024-12-22 20:55 | NUR ---
[facility] arrived for patient in 220. Patient in no distress. Alert and oriented. Informed patient of her transfer to [facility]. Telemetry pack removed. All belongings sent with patient. WOUND PICTURES TAKEN PRIOR TO TRANSFER.
--- NOTE | 2024-12-22 20:56 | NUR ---
PATIENT DID DISCHARGE WITH NOGUERA CATHETER IN PLACE. NOGUERA DRAINING CLEAR YELLOW URINE.
--- NOTE | 2024-12-23 11:56 | NUR ---
KRISSY Tena [phone]. APS bethany made visit yesterday am to pt's room. Sw made him aware that pt was discharged to [facility] yesterday evening. Roni to f/u with p at facility.
[2024-12-28] MEDS ORDERED: ERGOCALCIFEROL (VITAMIN D2) 50,000 UNIT CAPSULE PO SCH (09:00)
== END 2024-12-22 20:55 | DRG 871 ==
LOC: EDH 20:27 → EDHIP 23:52 → 2DH 12-19 01:52
PROVIDERS: ADMIT Internal Medicine Critical Care Medicine; ATTEND Internal Medicine Critical Care Medicine
DX: A41.9 Sepsis, unspecified organism (principal); E43 Unspecified severe protein-calorie malnutrition; L89.154 Pressure ulcer of sacral region, stage 4; N17.9 Acute kidney failure, unspecified; N30.00 Acute cystitis without hematuria; Z68.1 Body mass index [BMI] 19.9 or less, adult; R65.20 Severe sepsis without septic shock; E11.65 Type 2 diabetes mellitus with hyperglycemia; B96.20 Unspecified Escherichia coli [E. coli] as the cause of diseases classified elsewhere; E11.22 Type 2 diabetes mellitus with diabetic chronic kidney disease; E78.00 Pure hypercholesterolemia, unspecified; E88.09 Other disorders of plasma-protein metabolism, not elsewhere classified; G20.A1 Parkinson's disease without dyskinesia, without mention of fluctuations; I12.9 Hypertensive chronic kidney disease with stage 1 through stage 4 chronic kidney disease, or unspecified chronic kidney disease; N18.9 Chronic kidney disease, unspecified; Z74.01 Bed confinement status
CPT/HCPCS: 36415; 71045; 76770; 80048; 80053; 81001; 82550; 82948; 83605; 83735; 84100; 84145; 84443; 84484; 85025; 87086; 87186; 93005; 94664; 99285; G0378; J0692; J0696; J1644; J2185; J2470; J3370; J3475; J3480; J7120; 3370

== ENCOUNTER 2025-03-25 20:07 | Emergency (ER) | payer MEDICARE ==
[~2025-03-25] VITALS: Ht 154.9 cm; Wt 52.2 kg
[~2025-03-25 20:07] MED LIST changes: +ACET-2247 PO; +ACET650S14 PR; +ASCO500T10 PO; +BISA-151 PO; +DOCU-116 PO; -DSSL PO; +ERGO500093 PO; -FAMO-136 PO; +FAMO20TA8 PO; +GLUC1VIA19 IJ; +GLUC1VIA20 IJ; +HYDR25TA67 PO; +LACT10SO85 PO; +POLY17PO4 PO; +POTA-200 PO; +PROT946L PO; -VITAMIN D2 PO; +ZINC220T4 PO
[2025-03-25 20:11] VITALS: TEMP 98.1
--- NOTE | 2025-03-25 20:35 | EKG ---
[facility] Test Date: 2025-03-25 Test Time: 20:30:55 Pat Name: FARRAH PARMAR Department: ED Room: Gender: F Information Assoc: [id number] : 1945 Requested By: KERA LOGAN Order Number: [id number] Reading MD: Oliver Herrear Measurements Intervals [place] Rate: 68 P: 48 SD: 174 QRS: 42 QRSD: 77 T: 69 QT: 397 QTc: 422 Interpretive Statements Sinus rhythm Compared to ECG 12/18/2024 20:46:37 No significant changes Electronically Signed On 03-26-2025 19:49:58 CDT by Oliver Herrera Please click the below link to view image of tracing.
--- NOTE | 2025-03-25 20:36 | ERN ---
General Chief Complaint: Other Problems Stated Complaint: NO COMPLAINTS Time Seen by MD: 20:12 Source: patient, EMS History of Present Illness Initial Comments 80-year-old female with Parkinson's diabetes was seen by home health nursing today who raised concerns about sepsis. Patient herself feels like all her bones are weak". Patient alert and able to answer some questions about her health. She states no fevers but positive chills and no difficulties breathing no changes in urination or defecation. Allergies: Coded Allergies: No Known Drug Allergies (Verified Allergy, Unknown, 01/25/17) Home Meds Reported Medications Glucagon,Human Recombinant (Glucagon,Human Recombinant Kit) 1 Mg Kit, 1 MG IJ DAILY PRN for IF BLOOD GLUCOSE LESS THAN 60, KIT 12/19/24 Glucagon HCl (Glucagon HCl) 1 Mg Vial, 1 MG IJ DAILY, VIAL 12/19/24 Acetaminophen (Tylenol) 325 Mg Tablet, 2 TAB PO Q6HPRN PRN for pain or fever for 5 Days, #30 TAB 0 Refills 25 Acetaminophen (Acetaminophen) 650 Mg Supp.rect, 1 SUPP [place] Q6HPRN PRN for pain or fever for 1 Day, #4 SUPP 0 Refills 25 Lactulose (Lactulose) 10 Gram/15 Ml Solution, 30 ML PO Q6HPRN PRN for CONSTIPATION, #500 ML 0 Refills 25 Docusate Sodium (Colace) 100 Mg Capsule, 1 CAP PO BID PRN for CONSTIPATION for 30 Days, #60 CAP 0 Refills 25 Carbidopa/Levodopa (Carbidopa-Levo 25-100 mg Odt) 25 Mg-100 Mg Tab.rapdis, 1 EACH PO DAILY, TAB 5/25 Losartan Potassium (Losartan Potassium) 50 Mg Tablet, 1 TAB PO DAILY for 30 Days, #30 TAB 0 Refills 25 Bisacodyl (Bisacodyl) 5 Mg Tablet.dr, 1 TAB PO AD for constipation, #2 TAB 0 Refills 25 Potassium Chloride (Potassium Chloride) 10 Meq Tab.er.prt, 1 TAB PO DAILY for 30 Days, #30 TAB 0 Refills //25 Famotidine (Famotidine) 20 Mg Tablet, 1 TAB PO BID for GERD for 30 Days, #60 TAB 0 Refills 25 Hydralazine HCl (Hydralazine HCl) 25 Mg Tablet, 10 MG PO DAILY PRN for IF SBP GREATER THAN 160, TAB 12/19/24 Rosuvastatin Calcium (Rosuvastatin Calcium) 10 Mg Tablet, 1 TAB PO HS for 30 Days, #30 TAB 0 Refills 12/19/24 Polyethylene Glycol 3350 (Miralax) 17 Gram Powd.pack, 1 PACKET PO DAILY for constipation for 2 Days, #2 PACKET 0 Refills dissolve in water 12/19/24 Ergocalciferol (Vitamin D2) (Vitamin D2) 1,250 Mcg (24677 Unit) Capsule, 1 CAP PO QWEEK for 28 Days, #4 CAP 0 Refills 12/19/24 Zinc Sulfate (Zinc) 50 Mg Zinc (220 Mg) Tablet, 50 MG PO DAILY for wound healing, TAB 12/19/24 Protein Supplement (Promod) 946 Ml Liquid, 30 ML PO BIDMEALS for promote wound healing 12/19/24 Ascorbic Acid (Ascorbic Acid) 500 Mg Tablet, 1 TAB PO DAILY for 30 Days, #30 TAB 0 Refills 12/19/24 Amlodipine Besylate (Amlodipine Besylate) 5 Mg Tablet, 5 MG PO HS, TAB 01/26/17 Past Medical History Past Medical History: Diabetes-Type II, High Cholesterol, Hypertension, Other Medical History Other: PARKINSONS Past Surgical History: Social History Social History: Negative, Lives with family Constitutional: (+) chills, (+) weakness EENTM: (-) eye pain, (-) blurred vision, (-) tearing, (-) double vision, (-) ear pain, (-) ear discharge, (-) nose pain, (-) nose congestion, (-) throat pain, (-) Throat swelling, (-) mouth pain, (-) tooth pain, (-) mouth swelling, (-) other documentation Respiratory: (-) cough, (-) orthopnea, (-) short of breath, (-) stridor, (-) wheezing, (-) other documentation Cardiovascular: (-) chest pain, (-) edema, (-) palpitations, (-) syncope, (-) dyspnea on exertion, (-) other documentation Gastrointestinal/Abdominal: (-) nausea, (-) vomiting, (-) diarrhea, (-) abdominal pain, (-) abdominal distention, (-) constipation, (-) rectal bleeding, (-) dark stool/melena, (-) other documentation Genitourinary: (-) vaginal discharge, (-) vaginal bleeding, (-) dysuria, (-) frequency, (-) hematuria, (-) pain, (-) other documentation Musculoskeletal: (+) back pain Skin: (+) other documentation (Decubitus sacral ulcer) Physical Exam General Appearance: (+) mild distress Orientation: (+) alert Head/Face Trauma: No Eye: bilateral eye normal inspection, bilateral eye PERRL, bilateral eye EOMI Ear, Nose, Throat: (+) hearing grossly normal, (+) normal ENT inspection Neck: (+) normal inspection, (+) supple Respiratory: (+) chest non-tender, (+) lungs clear, (+) well ventilated Heart: (+) regular Vascular: (+) no edema, (+) normal peripheral pulse Gastrointestinal: (+) soft, (+) non-tender, (+) bowel sound present Skin Comment Patient has a small sacral decubitus ulcer that has no drainage no tracking and appears uninfected. Results Laboratory and Microbiology Lab and Micro Result Laboratory Tests Test 03/25/25 20:36 03/25/25 20:41 03/25/25 22:07 Influenza Type A Antigen Negative For Type A Influenza Type B Antigen Negative For Type B SARS-CoV-2 Antigen (Rapid) PRESUMPTIVE NEGATIVE Group A Streptococcus Rapid negative (NEGATIVE) White Blood Count 11.1 K/uL (4.8-10.8) H Red Blood Count 3.91 MIL/uL (4.00-5.50) L Hemoglobin 11.3 g/dL (12.0-16.0) L Hematocrit 34.0 % (36-48) L Mean Corpuscular Volume 87.0 fL (79-99) Mean Corpuscular Hemoglobin 28.9 pg (27.0-33.0) Mean Corpuscular Hemoglobin Concent 33.2 g/dL (32.0-36.0) Red Cell Distribution Width 13.7 % (11.0-15.5) Platelet Count 359 K/uL (130-400) Mean Platelet Volume 8.4 fL (7.5-10.5) Immature Granulocyte % (Auto) 0.5 % (0-1) Neutrophils (%) (Auto) 59.3 % (40.0-77.0) Lymphocytes (%) (Auto) 27.2 % (21.0-51.0) Monocytes (%) (Auto) 7.0 % (3.0-13.0) Eosinophils (%) (Auto) 5.3 % (0.0-8.0) Basophils (%) (Auto) 0.7 % (0.0-5.0) Neutrophils # (Auto) 6.6 K/uL (1.8-7.7) Lymphocytes # (Auto) 3.0 K/uL (1.0-4.8) Monocytes # (Auto) 0.8 K/uL (0.1-1.0) Eosinophils # (Auto) 0.59 K/uL (0.00-0.70) Basophils # (Auto) 0.08 K/uL (0.00-0.20) Absolute Immature Granulocyte (auto 0.06 K/uL (0-1) Nucleated Red Blood Cells 0.0 % (0.0-0.19) Sodium Level 143 mmol/L (136-145) Potassium Level 3.9 mmol/L (3.5-5.1) Chloride Level 106 mmol/L (101-111) Carbon Dioxide Level 27 mmol/L (21-32) Blood Urea Nitrogen 32 mg/dL (7-18) H Creatinine 1.9 mg/dL (0.5-1.0) H Glomerular Filtration Rate Calc 26 mL/min (>90) Random Glucose 106 mg/dL (70-105) H Lactic Acid Level 1.4 mmol/L (0.8-2.5) Total Calcium 8.4 mg/dL (8.5-10.1) L Total Bilirubin 0.4 mg/dL (0.2-1.0) Aspartate Amino Transf (AST/SGOT) 11 U/L (10-37) Alanine Aminotransferase (ALT/SGPT) 8 U/L (12-78) L Alkaline Phosphatase 118 U/L (50-136) Troponin I High Sensitivity 6 ng/L (4-50) B-Type Natriuretic Peptide 28 pg/mL (0-100) Total Protein 6.8 g/dL (6.0-8.3) Albumin 3.4 g/dL (3.5-5.0) L Procalcitonin < 0.05 ng/mL (0.05-0.5) L Urine Color LIGHT-YELLOW (YELLOW) Urine Appearance CLEAR (CLEAR) Urine pH 5.5 (5.0-8.0) Urine Specific [place] 1.017 (1.001-1.031) Urine Protein 50 mg/dL (NEGATIVE) H Urine Glucose (UA) NEGATIVE mg/dL (NEGATIVE) Urine Ketones NEGATIVE mg/dL (NEGATIVE) Urine Occult Blood +- (TRACE) (NEGATIVE) H Urine Nitrate NEGATIVE (NEGATIVE) Urine Bilirubin NEGATIVE mg/dL (NEGATIVE) Urine Urobilinogen 0.2 mg/dL (0.2-1.0) Urine Leukocyte Esterase 250 Alexa/uL (NEGATIVE) H Urine RBC 6-10 /HPF (0-1) H Urine WBC 11-25 /HPF (0-1) H Urine Squamous Epithelial Cells RARE /HPF (0-2) Urine Bacteria MANY /HPF (None Seen) Urine Hyaline Casts 2-5 /LPF (0-1 /LPF) H Urine Yeast FEW /HPF (None Seen) MDM MDM: Differential diagnosis: Sepsis, cardiac disease, pneumonia, UTI, dehydration, malnutrition, electrolyte disturbances Rationale: Tests considered and ordered secondary to shared decision making include: Previous outside records reviewed: Old ER visits. Risk of complication and/or morbidity or mortality of patient management: None Medications-Per medication reconciliation Need for hospitalization: Patient does meet criteria for hospitalization. Need for emergency major/minor surgery: No There are no social concerns with this patient. Prescription drug management Prescriptions will include symptomatic care Patient's prior external medical records from other ER visits were reviewed by me as indicated. Prior testing and results from previous visits were reviewed. Prior tests were taken into account with medical decision making and resource utilization, independent historian/historians were used to obtain complete medical history. I independently interpreted the test that were performed, results were reviewed by me and considered findings on radiology if ordered. Patient's laboratory analysis shows a mild increase in her creatinine and BUN. Mild elevation of her white blood cell count and she has a urinary tract infection. I will give her a dose of Zosyn here and then discharge her with nitrofurantoin, based on culture results from a prior UTI. ED Course Orders Procedure Category Date Status Time 12 Lead Ekg Tracing- EKG 03/25/25 Complete Technical 20:25 Cbc With Differential LAB 03/25/25 Complete 20:25 Comprehensive LAB 03/25/25 Complete Metabolic Panel 20:25 Covid19 (Sars Antigen LAB 03/25/25 Complete Rapid) 20:25 Influenza Type A & B, LAB 03/25/25 Complete Rapid 20:25 Lactic Acid LAB 03/25/25 Complete 20:25 Procalcitonin LAB 03/25/25 Complete 20:25 Rapid (Group A Strep) LAB 03/25/25 Complete 20:25 Troponin I High LAB 03/25/25 Complete Sensitivity 20:25 Urinalysis Profile LAB 03/25/25 Complete 20:25 B-Type Natriuretic LAB 03/25/25 Complete Peptide 20:25 Chest 1vw RAD 03/25/25 Taken 20:25 Lactated Ringers PHA 03/25/25 Complete 1000ml (Lactated 20:25 Culture Urine CORNEL 03/25/25 In Process 22:19 Cefazolin Sodium 1 Gm PHA 03/25/25 Verified Vial (Ancef 1 Gm V 22:24 Current Medications Medications (Trade) Dose Ordered Sig/Jorge Route PRN Reason Start Time Stop Time Status Last Admin Dose Admin Lactated Ringer's (Lactated Ringers 1000ml) 1,000 ml BOLUS STAT IV 03/25/25 20:25 03/25/25 20:28 DC 03/25/25 20:43 Vital Signs Date Time Temp Pulse Resp B/P (MAP) Pulse Ox O2 Delivery O2 Flow Rate FiO2 03/25/25 21:46 60 15 155/57 99 Room Air* 0 21 03/25/25 20:33 69 15 144/73 99 Room Air* 0 21 03/25/25 20:11 98.1 81 16 194/78 97 Room Air 0 DX & DISP Disposition: Discharge Departure Impression: Primary Impression: UTI (urinary tract infection) Additional Impression: Acute kidney injury Condition: Stable Scripts Nitrofurantoin Macrocrystal (Nitrofurantoin) 100 Mg Capsule 1 CAP PO BID for 7 Days, #14 CAP 0 Refills Prov: KERA LOGAN MD 03/25/25 Additional Instructions: You have a urinary tract infection and you are dehydrated. I am giving you antibiotics here in the emergency room and a prescription for antibiotics has been sent to your pharmacy. Please take those antibiotics to completion. Increase your one intake. Try to drink enough water each day that your urine runs clear at least once a day. Please return to the emergency room if you have continued weakness chills fevers and inability to eat. Referrals: BHARATHI JOSÉ MD (PCP) KERA LOGAN MD Mar 25, 2025 20:36
[2025-03-25] MEDS: LACTATED RINGERS 1000ML IV STA (20:43)
[2025-03-25 20:46] LABS: IMMATURE GRANULOCYTE ABSOLUTE 0.06 K/uL (0-1); NUCLEATED RED BLOOD CELLS 0.0 % (0.0-0.19); PLATELET COUNT (AUTO) 359 K/uL (130-400); RED BLOOD CELL COUNT(AUTO) 3.91 MIL/uL (4.00-5.50); RED CELL DISTRIBUTION WIDTH 13.7 % (11.0-15.5); WHITE BLOOD COUNT (AUTO) 11.1 K/uL (4.8-10.8)
[2025-03-25 20:56] LABS: RAPID GROUP A STREP negative (NEGATIVE)
[2025-03-25 21:01] LABS: CREATININE 1.9 mg/dL (0.5-1.0); GLOMERULAR FILTR. RATE CALC 26.0 mL/min (>90); GLUCOSE,RANDOM 106.0 mg/dL (70-105); SODIUM SERUM 143.0 mmol/L (136-145); UREA NITROGEN, BLOOD 32.0 mg/dL (7-18)
[2025-03-25 21:05] LABS: INFLUENZA TYPE A Negative For Type A (NEGATIVE); INFLUENZA TYPE B Negative For Type B (NEGATIVE)
[2025-03-25 21:06] LABS: COVID19 (SARS ANTIGEN RAPID) PRESUMPTIVE NEGATIVE (NEGATIVE)
[2025-03-25 21:10] LABS: ASPARTATE AMINOTRANSFERASE 11.0 U/L (10-37); TOTAL PROTEIN, SERUM 6.8 g/dL (6.0-8.3)
[2025-03-25 22:18] LABS: APPEARANCE,URINE CLEAR (CLEAR); GLUCOSE, URINE (UA) NEGATIVE (NEGATIVE); LEUKOCYTE ESTERASE ,URINE 250 Leu/uL (NEGATIVE); NITRATE,URINE NEGATIVE (NEGATIVE); OCCULT BLOOD,URINE +- (TRACE) (NEGATIVE)
[2025-03-25 22:19] LABS: ADD UA MICROSCOPIC YES
[2025-03-25 22:21] LABS: SQUAMOUS EPITHELIAL CELL,UR RARE /HPF (0-2); YEAST,URINE BUDDING FEW /HPF (None Seen)
[2025-03-25] MEDS ORDERED: NITR100C PO (22:31)
[2025-03-25] MEDS: ZOSYN 3.375GM +NS 50ML IV ONE (22:57)
[2025-03-25] MEDS: ZOSYN 3.375GM+NS 50ML 50 ML ONE (22:57)
--- NOTE | 2025-03-25 23:24 | NUR ---
[facility] CONTACTED FOR TRANSFER HOME
[2025-03-26 00:38] VITALS: BP 154/72; PULSE 64; RESP 16; O2SAT 99
--- NOTE | 2025-03-26 00:41 | NUR ---
[facility] ARRIVAL FOR PT TRANSPORT TO HOME. SPOKE WITH SON LUMA, SON VERBALIZED UNDERSTANDING OF D/C INSTRUCTIONS.
--- NOTE | 2025-03-26 00:50 | NUR ---
[facility] DEPARTURE WITH PATIENT, D/C TO HOME.
--- NOTE | 2025-03-26 09:35 | HMCIMG ---
EXAM: CR Chest, single view. CLINICAL HISTORY: Cough. COMPARISON: Prior chest radiograph dated 18 Dec 2024. FINDINGS: The lungs show no infiltrate or other acute findings. No pleural effusion or pneumothorax. The cardiomediastinal silhouette is within normal limits. No acute osseous abnormality. Mild degenerative changes in the mid and lower thoracic spine. IMPRESSION: No acute cardiopulmonary pathology is evident. Compared to the prior study, there is no significant interval change. /[place]
== END 2025-03-26 00:50 | disposition home or self-care (01) ==
LOC: EDH 20:07
DX: N39.0 Urinary tract infection, site not specified (principal); N17.9 Acute kidney failure, unspecified; E11.9 Type 2 diabetes mellitus without complications; E78.00 Pure hypercholesterolemia, unspecified; I10 Essential (primary) hypertension; Z79.899 Other long term (current) drug therapy; Z20.822 Contact with and (suspected) exposure to COVID-19
CPT/HCPCS: 99285; 96365; 71045; 96366; 96361; 96375; 87426; 84484; 80053; 83880; 85025; 87086; 87880; 87804 ×2; 83605; 81001; 36415; 93005; 84145; J7120; J0690; J2543